=== PATIENT | female | born 1980 | race Caucasian/White ===

== ENCOUNTER 2017-03-27 14:23 | Emergency (ER) | payer BC, SELFPAY ==
[2017-03-27 14:33] VITALS: BP 149/79; PULSE 98; RESP 20; TEMP 36.6; O2SAT 99; BMI 32.8
--- NOTE | 2017-03-27 14:52 | HMH.EDUTC ---
[facility] [place]: Sinusitis Disposition: Home, Self-Care Condition on Discharge: Good Instructions: Sinusitis, DI for Sinusitis Additional Instructions: Start antibiotic. Sinus infections may take 2-3 days to notice much improvement so be sure to use conservative measures as discussed for symptoms Ok to continue Sudafed Flonase 2 spray in each nostril daily to help with nasal congestion, sinus an ear pressure/inflammation Lots of Fluids Sleep elevated Humidifer/vaporizer Augmentin can cause GI effects. Probiotics may help to prevent these symptoms Prescriptions: Amoxicillin/Potassium Clav [Augmentin 875-125 Tablet] 1 tab PO Q12H #14 tab Fluticasone Propionate [Flonase 50mcg nasal spray 16gm] 2 spr NS DAILY #1 bottle predniSONE [Prednisone 20mg Tab] 20 mg PO BID #10 tab Forms: Work/School Release Time of Disposition: 15:08 Medical Decision Making - Medical Records Medical records reviewed: Yes: I reviewed the patient's medical records. Vital Signs: 03/27/17 14:33 Temperature 97.8 F Temperature Source Temporal Artery Scan Pulse Rate [Right] 98 H Respiratory Rate 20 Blood Pressure [Right Arm] 149/79 Blood Pressure Mean [Right Arm] 102 Blood Pressure Source [Right Arm] Automatic Cuff Blood Pressure Position [Right Arm] Sitting 02 Sat by Pulse Oximetry 99 Oxygen Delivery Method Room Air - Hans Inquiry Pt receiving controlled substance: No Hans was queried for this patient: No [facility] [place] - General Stated complaint: head cold or sinus infection ears Mode of Arrival: Ambulatory Source of Information: Patient Limitations: No Limitations Description of Symptoms (Recalled from Triage Doc. by RN): SINUS PRESSURE EAR PAIN HEENT Symptoms (Recalled from RN notes): Yes Resp Symptoms (Recalled from RN notes): No Skin Symptoms (Recalled from RN notes): No MS Symptoms (Recalled from RN notes): No Functional Status (Recalled from RN notes): N - History of Present Illness Provider Complaint: Patient state that she feels like she may have a sinus infection State that she has been having pain and pressure behind her eyes and pressure feeling in her upper teeth for over a week that has continued to get worse State that she has taken sudafed but it has not helped with pain and pressure feeling - Related Data Previous Rx's Medication Instructions Recorded Amoxicillin/Potassium Clav 1 tab PO Q12H #14 tab 03/27/17 [Augmentin 875-125 Tablet] Fluticasone Propionate [Flonase 2 spr NS DAILY #1 bottle 03/27/17 50mcg nasal spray 16gm] predniSONE [Prednisone 20mg 20 mg PO BID #10 tab 03/27/17 Tab] Allergies Allergy/AdvReac Type Severity Reaction Status Date / Time No Known Allergies Allergy Verified 03/27/17 14:40 - Worker's Comp Is this a Worker's Comp case?: No [facility] History I have reviewed the patient's past medical history: Yes - *Social History Smoking Status: Current every day smoker Tobacco Type: cigarettes Alcohol Intake: never - Psychiatric History Expresses thoughts of harming self/others: None Suicide Plan Description: No Plan ROS Obtained: Yes All systems reviewed & no additional complaints - Constitutional Constitutional: Reports fever(s) - ENT Ears, Nose, Mouth, and Throat: Reports sinus pain, Reports sinus pressure, Reports sore throat Physical Exam - General General appearance: alert, in no apparent distress - Expanded ENT Exam Nose exam: Present: sinus tenderness, other (Pain and tenderness noted Maxillary sinuses, reports thick yellow discharge) Nasal speculum exam: Bilateral: purulent discharge - Respiratory Respiratory exam: Present: normal lung sounds bilaterally. Absent: respiratory distress - Cardiovascular Cardiovascular exam: Present: regular rate, normal rhythm. Absent: JVD - Neurological Exam Neurological exam: Present: alert, oriented X3
--- NOTE | 2017-03-27 14:56 | ED_ITS ---
[facility] [place] Clinical Impression: Sinusitis Disposition: Home, Self-Care Condition on Discharge: Good Instructions: Sinusitis, DI for Sinusitis Additional Instructions: Start antibiotic. Sinus infections may take 2-3 days to notice much improvement so be sure to use conservative measures as discussed for symptoms Ok to continue Sudafed Flonase 2 spray in each nostril daily to help with nasal congestion, sinus an ear pressure/inflammation Lots of Fluids Sleep elevated Humidifer/vaporizer Augmentin can cause GI effects. Probiotics may help to prevent these symptoms Prescriptions: Amoxicillin/Potassium Clav [Augmentin 875-125 Tablet] 1 tab PO Q12H #14 tab Fluticasone Propionate [Flonase 50mcg nasal spray 16gm] 2 spr NS DAILY #1 bottle predniSONE [Prednisone 20mg Tab] 20 mg PO BID #10 tab Forms: Work/School Release Time of Disposition: 15:08 Medical Decision Making - Medical Records Medical records reviewed: Yes: I reviewed the patient's medical records. Vital Signs: 03/27/17 14:33 Temperature 97.8 F Temperature Source Temporal Artery Scan Pulse Rate [Right] 98 H Respiratory Rate 20 Blood Pressure [Right Arm] 149/79 Blood Pressure Mean [Right Arm] 102 Blood Pressure Source [Right Arm] Automatic Cuff Blood Pressure Position [Right Arm] Sitting 02 Sat by Pulse Oximetry 99 Oxygen Delivery Method Room Air - Hans Inquiry Pt receiving controlled substance: No Hans was queried for this patient: No [facility] [place] HPI - General Stated complaint: head cold or sinus infection ears Mode of Arrival: Ambulatory Source of Information: Patient Limitations: No Limitations Description of Symptoms (Recalled from Triage Doc. by RN): SINUS PRESSURE EAR PAIN HEENT Symptoms (Recalled from RN notes): Yes Resp Symptoms (Recalled from RN notes): No Skin Symptoms (Recalled from RN notes): No MS Symptoms (Recalled from RN notes): No Functional Status (Recalled from RN notes): N - History of Present Illness Provider Complaint: Patient state that she feels like she may have a sinus infection State that she has been having pain and pressure behind her eyes and pressure feeling in her upper teeth for over a week that has continued to get worse State that she has taken sudafed but it has not helped with pain and pressure feeling - Related Data Previous Rx's Medication Instructions Recorded Amoxicillin/Potassium Clav 1 tab PO Q12H #14 tab 03/27/17 [Augmentin 875-125 Tablet] Fluticasone Propionate [Flonase 2 spr NS DAILY #1 bottle 03/27/17 50mcg nasal spray 16gm] predniSONE [Prednisone 20mg 20 mg PO BID #10 tab 03/27/17 Tab] Allergies Allergy/AdvReac Type Severity Reaction Status Date / Time No Known Allergies Allergy Verified 03/27/17 14:40 - Worker's Comp Is this a Worker's Comp case?: No [facility] History I have reviewed the patient's past medical history: Yes - *Social History Smoking Status: Current every day smoker Tobacco Type: cigarettes Alcohol Intake: never - Psychiatric History Expresses thoughts of harming self/others: None Suicide Plan Description: No Plan ROS Obtained: Yes All systems reviewed & no additional complaints - Constitutional Constitutional: Reports fever(s) - ENT Ears, Nose, Mouth, and Throat: Reports sinus pain, Reports sinus pressure, Reports sore
[2017-03-27 15:28] LABS: UTC Strep Screen (Rapid) Negative (Negative)
== END 2017-03-27 15:29 | disposition home or self-care (01) ==
PROVIDERS: Emergency Provider Nurse Practitioner; Family Provider Family Medicine
DX: J32.9 Chronic sinusitis, unspecified (principal); F17.210 Nicotine dependence, cigarettes, uncomplicated
CPT/HCPCS: 87880; 99201

== ENCOUNTER → 2018-03-26 07:26 | Outpatient (CLI) | payer BC, SELFPAY ==
[2018-03-26 07:58] LABS: Basophils # 0.1 K/mm3 (0-0.2); Basophils % 0.5 % (0.1-2.0); Eosinophils # 0.3 K/mm3 (0.0-0.4); Eosinophils % 2.7 % (0.1-12.0); Hematocrit 44.3 % (37.0-47.0); Hemoglobin 14.6 g/dL (12.2-16.2); Lymphocytes # 3.1 K/mm3 (0.7-4.5); Lymphocytes % 27.5 % (10-50); Mean Corpuscular HGB Conc 32.9 g/dL (31.8-35.4); Mean Corpuscular Hemoglobin 30.8 pg (27.0-31.2); Mean Corpuscular Volume 93.5 fl (81-99); Mean Platelet Volume 7.8 fl (7.4-10.4); Monocytes # 0.6 K/mm3 (0.1-1.0); Monocytes % 5.8 % (1.7-9.3); Neutrophils # 7.1 K/mm3 (1.8-7.8); Neutrophils % 63.5 % (37.0-80.0); Platelet Count 347 K/mm3 (142-424); Red Blood Count 4.74 M/mm3 (4.20-5.40); White Blood Count 11.2 K/mm3 (4.8-10.8)
[2018-03-26 10:15] LABS: Alanine Aminotransferase 46 U/L (12-78); Albumin Level 3.7 gm/dL (3.4-5.0); Alkaline Phosphatase 81 U/L (46-116); Anion Gap 15.5 mEq/L (5-15); Aspartate Amino Transferase 16 U/L (15-37); Bilirubin,Total 0.8 mg/dL (0.2-1.0); Blood Urea Nitrogen 10 mg/dL (7-18); Calcium 9.9 mg/dL (8.5-10.1); Carbon Dioxide 24 mmol/L (21.0-32.0); Chloride 104 mmol/L (98-107); Chol/HDL Ratio 5.8 (1-3.5); Cholesterol 198 mg/dL (140-200); Creatinine,Serum 0.71 mg/dL (0.55-1.02); Estimated Glomerular Filt Rate 92 ml/min (>60); Free Thyroxine Index 3.3 ug/dL (5.93-13.13); GFR (African American) 111 ML/MIN (>60); Globulin 3.6 gm/dl (1.3-3.2); Glucose 100 mg/dL (74-106); HDL Cholesterol 34 mg/dL (29-89); LDL Cholesterol 132 mg/dL (0-130); Potassium 4.5 mmoL/L (3.5-5.1); Sodium 139 mmol/L (136-145); Total Protein,Serum 7.3 gm/dL (6.4-8.2); Triglycerides 159 mg/dL (30-200); Triiodothryronine (T3) Uptake 33 % (31-39); VLDL Cholesterol 32 mg/dL (0-40)
[2018-03-27 08:14] LABS: Triiodothyronine (T3) Free 3.4 pg/mL (2.0-4.4)
[2018-03-27 13:41] LABS: Estradiol 154.3 pg/mL (.); FSH 1.6 mIU/mL (.); LH 2.8 mIU/mL (.)
== END ==
PROVIDERS: Visit Provider Nurse Practitioner Obstetrics & Gynecology
DX: F41.9 Anxiety disorder, unspecified (principal); R23.2 Flushing; R45.86 Emotional lability
CPT/HCPCS: 36415; 80053; 80061; 82670; 83001; 83002; 84436; 84443; 84479; 84481; 85025

== ENCOUNTER → 2018-06-17 13:30 | Outpatient (POV) | payer BC, SELFPAY | PROVIDERS: Visit Provider Dermatology | DX: Z00.00 Encounter for general adult medical examination without abnormal findings (principal) ==

== ENCOUNTER → 2019-01-21 13:30 | Outpatient (CLI) | payer BC, SELFPAY ==
--- NOTE | 2019-01-21 13:31 | US_ITS ---
PROCEDURE: US TRANSVAGINAL CLINICAL INDICATION: US T/V- Abnormal bleeding Heavy cycles, heavy bleeding COMPARISON: No exams were available for comparison FINDINGS: The uterus is 7.4 x 4 x 5.6 cm. The endometrium is thickened at 13 mm. No obvious uterine mass. The uterus is retroverted The left ovary is 3.7 x 2.3 cm and contains multiple small follicles. The right ovary is 4 x 2.4 cm and contains a 1.8 cm cyst No cul-de-sac fluid there is bilateral ovarian blood flow IMPRESSION: Retroverted uterus with thickened endometrium and small bilateral ovarian cysts Dictated by: Yordan Eli MD 01/21/2019 19:35 Electronically signed by Yordan Eli MD in [place] 01/21/2019 19:35
== END ==
PROVIDERS: PCP Family Medicine; Visit Provider Nurse Practitioner Obstetrics & Gynecology
DX: N93.9 Abnormal uterine and vaginal bleeding, unspecified (principal)
CPT/HCPCS: 76830

== ENCOUNTER 2020-01-23 14:18 | Emergency (ER) | payer BC, SELFPAY ==
[2020-01-23 14:25] VITALS: BP 148/94; PULSE 104; RESP 18; TEMP 36.9; O2SAT 98; BMI 31.3
--- NOTE | 2020-01-23 14:41 | HMH.EDUTC ---
[facility] [place] Clinical Impression: Impacted cerumen of both ears, COVID-19 virus test result unknown Disposition: Home, Self-Care Condition on Discharge: Good Instructions: Preventing the Spread of Coronavirus Discharge Instructions, Cerumen Impaction Additional Instructions: self isolate until test results are known to be neg follow up with pcp if symptoms worsen or do not improve increase fluids tylenol or motrin as needed Referrals: Ab Negron MD [Primary Care Provider] - Time of Disposition: 14:46 Medical Decision Making - Hans Inquiry Pt receiving controlled substance: No Vital Signs: 01/23/20 14:25 Temperature 98.4 F Temperature Source Oral Pulse Rate [Right Brachial] 104 H Respiratory Rate 18 Blood Pressure [Right Arm] 148/94 H Blood Pressure Mean [Right Arm] 112 Blood Pressure Source [Right Arm] Automatic Cuff Blood Pressure Position [Right Arm] Sitting 02 Sat by Pulse Oximetry 98 Oxygen Delivery Method Room Air Orders (Tests/Meds): ORDERS Category Date Time Status Covid-19 Nasal PCR Sendout [facility] 01/23/20 14:29 Ordered [facility] [place] - General Chief complaint: Urgent [facility] Stated complaint: ear pain Time Seen by Provider: 01/23/20 14:42 Mode of Arrival: Ambulatory Source of Information: Patient Limitations: No Limitations Description of Symptoms (Recalled from Triage Doc. by RN): PATIENT C/O LEFT EAR PAIN AND SINUS DRAINAGE X 2 MONTHS. REQUESTING COVID TEST HEENT Symptoms (Recalled from RN notes): No Resp Symptoms (Recalled from RN notes): No Skin Symptoms (Recalled from RN notes): No MS Symptoms (Recalled from RN notes): No Functional Status (Recalled from RN notes): WNL - History of Present Illness Provider Complaint: 39 yr old female presents for steven ear pain with pressure and sinus congestion for 2 months. pt states she is day 11 of her quaritine and wants to make sure. - Related Data Home Medications Medication Instructions Recorded Confirmed Cetirizine HCl [Zyrtec] 10 mg PO DAILY 10/14/18 01/23/20 Sertraline HCl [Zoloft] 50 mg PO DAILY 01/23/20 01/23/20 Allergies Allergy/AdvReac Type Severity Reaction Status Date / Time No Known Allergies Allergy Verified 01/15/19 09:49 - Worker's Comp Is this a Worker's Comp case?: No [facility] History - Hepatitis A Screen Drug use history?: No High risk sexual behaviors?: No History of sexually transmitted infection?: No Currently employed?: No Childcare worker?: No Do you have indoor plumbing?: Yes Do you have electricity?: Yes Attestation statement:: This patient has been screened for Hepatitis A risk factors. I have reviewed the patient's past medical history: Yes Medical History: Reports:: Anxiety, Depression Denies:: Cancer, Diabetes Mellitus Type 1, Diabetes Mellitus Type 2, Hypertension, MRSA Other Surgeries: Yes: No Previous Surgery, Cholecystectomy Amputation: No Fractures: No - Social History Smoking Status: Current every day smoker Tobacco Type: cigarettes # Packs/Day (cigarettes): 1 Alcohol Intake: never Substance Use Type: denies use Occupational Status: other Housing: house - Psychiatric History Pschychiatric History:: Reports:: Anxiety, Depression Family Hx:: No significant family history [employer] history: Spontaneous ROS Obtained: Yes Systems reviewed as appropriate & no additional complaints - Constitutional Constitutional: Reports system reviewed and no additional complaints, except as docu, Denies chills, Denies fever(s) - Eyes Eyes: Reports system reviewed and no additional complaints, except as docu - ENT Ears, Nose, Mouth, and Throat: Reports system reviewed and no additional complaints, except as docu, Reports otalgia, Reports hearing loss, Reports nasal congestion, Reports post nasal drip, Reports sinus pressure - Cardiovascular Cardiovascular: Reports system reviewed and no additional complaints, except as docu, Denies chest pain - Respi
[2020-01-23 15:03] VITALS: BP 148/94; PULSE 104; RESP 18; TEMP 36.9; O2SAT 98
[2020-01-25 09:54] LABS: Covid-19 Nasal PCR Sendout UK Detected
--- NOTE | 2020-01-25 11:42 | PC.NURSE ---
PATIENT NOTIFIED OF POSITIVE COVID RESULTS
== END 2020-01-23 15:05 | disposition home or self-care (01) ==
PROVIDERS: Emergency Provider Nurse Practitioner Family; PCP Family Medicine
DX: U07.1 COVID-19 (principal); F41.8 Other specified anxiety disorders; H61.23 Impacted cerumen, bilateral; F17.210 Nicotine dependence, cigarettes, uncomplicated; Z90.49 Acquired absence of other specified parts of digestive tract; Z79.899 Other long term (current) drug therapy
CPT/HCPCS: 99201; U0003

== ENCOUNTER → 2020-02-16 10:18 | Outpatient (CLI) | payer BC, SELFPAY ==
[2020-02-16 10:21] LABS: Microscopic, Urine URINE MICROSCOPIC (MICROSCOPIC)
[2020-02-16 11:02] LABS: Basophils # 0.1 K/mm3 (0-0.2); Basophils % 0.5 % (0.1-2.0); Eosinophils # 0.3 K/mm3 (0.0-0.4); Eosinophils % 2.6 % (0.1-12.0); Hematocrit 44.7 % (37.0-47.0); Hemoglobin 15.3 g/dL (12.2-16.2); Lymphocytes # 2.9 K/mm3 (0.7-4.5); Lymphocytes % 27.2 % (10-50); Mean Corpuscular HGB Conc 34.3 g/dL (31.8-35.4); Mean Corpuscular Hemoglobin 32.3 pg (27.0-31.2); Mean Corpuscular Volume 94.1 fl (81-99); Mean Platelet Volume 8.3 fl (7.4-10.4); Monocytes # 0.6 K/mm3 (0.1-1.0); Monocytes % 5.3 % (1.7-9.3); Neutrophils # 6.7 K/mm3 (1.8-7.8); Neutrophils % 64.3 % (37.0-80.0); Platelet Count 363 K/mm3 (142-424); Red Blood Count 4.75 M/mm3 (4.20-5.40); Red Cell Distribution Width 13.5 % (11.5-17.5); White Blood Count 10.5 K/mm3 (4.8-10.8)
[2020-02-16 11:26] LABS: Chloride 103 mmol/L (98-107); Sodium 139 mmol/L (136-145)
[2020-02-16 11:27] LABS: Potassium 4.8 mmoL/L (3.5-5.1)
[2020-02-16 11:29] LABS: Alanine Aminotransferase 39 U/L (12-78); Alkaline Phosphatase 88 U/L (38-126); Aspartate Amino Transferase 32 U/L (14-36); Bilirubin,Total 0.6 mg/dl (0.2-1.3); Blood Urea Nitrogen 11 mg/dl (7-17); Estimated Glomerular Filt Rate 93 ml/min (>60); GFR (African American) 112 ML/MIN (>60)
[2020-02-16 11:30] LABS: Albumin Level 4.7 g/dl (3.5-5.0); Albumin/Globulin Ratio 1.5 (1.1-1.8); Anion Gap 14.8 mEq/L (5-15); Calcium 10.5 mg/dl (8.4-10.2); Carbon Dioxide 26 mmol/L (22.0-30.0); Globulin 3.1 g/dL (1.3-3.2); Glucose 128 mg/dl (74-100); Total Protein,Serum 7.8 g/dl (6.3-8.2)
[2020-02-16 11:53] LABS: Free Thyroxine Index 3.5 ug/dL (5.93-13.13); T4 (Thyroxine) 11.9 ug/dl (5.53-11.0); Triiodothryronine (T3) Uptake 29 % (23.5-40.5)
[2020-02-16 12:09] LABS: Thyroid Stimulating Hormone 2.28 uIU/mL (0.465-4.68)
[2020-02-16 19:02] LABS: Appearance,Urine CLEAR (Clear); Bilirubin,Urine Negative (Negative); Blood, Urine 3+ (Negative); Color,Urine YELLOW (Yellow); Glucose,Urine (UA) Negative (Negative); Ketones,Urine Negative (Negative); Leukocyte Esterase,Urine Negative (Negative); Nitrate,Urine Negative (Negative); Protein,Urine Negative (Negative); Urobilinogen,Urine 0.2 EU/dl (0.2)
[2020-02-17 10:27] LABS: FSH 6.7 mIU/mL (.); LH 8.6 mIU/mL (.)
== END ==
PROVIDERS: Visit Provider Nurse Practitioner Obstetrics & Gynecology
DX: N92.6 Irregular menstruation, unspecified (principal); N39.0 Urinary tract infection, site not specified
CPT/HCPCS: 36415; 80053; 81001; 83001; 83002; 84436; 84443; 84479; 85025

== ENCOUNTER → 2020-02-18 14:28 | Outpatient (CLI) | payer BC, SELFPAY ==
--- NOTE | 2020-02-18 14:29 | US_ITS ---
PROCEDURE: US TRANSVAGINAL CLINICAL INDICATION: Menorrhagia Heavy cycles and pelvic pain COMPARISON: US US TRANSVAGINAL from 01/21/2019 FINDINGS: UTERUS: 7cm x 5cmx 4cm with a combined endometrial thickness of 7.3mm LEFT OVARY: [id number] with a volume of 7ml. RIGHT OVARY: [id number] with a volume of 7.4ml. There are simple bilateral ovarian cyst. There is also a complex right ovarian cyst measuring 2 cm with some nodularity of the wall an underlying septa. The uterus is retroverted IMPRESSION: Retroverted uterus with complex right ovarian cyst. Suggest 3 to six-month follow-up to confirm stability. Dictated by: Yordan Eli MD 02/18/2020 17:13 Yordan Eli MD in [place] 02/18/2020 17:13
== END ==
LOC: RAD 14:29
PROVIDERS: PCP Family Medicine; Visit Provider Nurse Practitioner Obstetrics & Gynecology
DX: N92.0 Excessive and frequent menstruation with regular cycle (principal)
CPT/HCPCS: 76830

== ENCOUNTER 2021-05-21 14:17 | Emergency (ER) | payer BC, SELFPAY ==
[2021-05-21 16:15] VITALS: BP 145/91; PULSE 84; RESP 19; TEMP 37.2; O2SAT 98; BMI 30.4
--- NOTE | 2021-05-21 16:31 | HMH.EDUTC ---
[facility] [place] Clinical Impression: Otitis media Qualifiers: Otitis media type: suppurative Chronicity: acute Laterality: bilateral Recurrence: non-recurrent Spontaneous tympanic membrane rupture: without spontaneous rupture Qualified Code(s): H66.003 - Acute suppurative otitis media without spontaneous rupture of ear drum, bilateral Disposition: Home, Self-Care Condition on Discharge: Good Instructions: DI for Otitis Media (Middle Ear Infection)-Child Additional Instructions: Start antibiotic as soon as possible and be sure to take as ordered for full length of time even though he should start feeling better in 24-48 hours. Tylenol or Motrin as needed for pain or fever Encourage fluids, water, Gatorade, Powerade, Pedialyte if /toddler/child Warm compresses often helps when placed over ear Return immediately for new or worsening symptoms no noticeable improvement in 48-72 hours and in 10-14 days to ensure the ears are return to baseline. Follow-up with primary care Prescriptions: Amoxicillin [Amoxicillin 500mg Tab] 500 mg PO BID 10 Days #20 tab Prescription Printed Referrals: Provider,Referral, [Primary Care Provider] - Time of Disposition: 16:41 Medical Decision Making - Hans Inquiry Pt receiving controlled substance: No Vital Signs: 05/21/21 16:15 Temperature 98.9 F Temperature Source Oral Pulse Rate [Right Brachial] 84 Respiratory Rate 19 Blood Pressure [Right Arm] 145/91 H Blood Pressure Mean [Right Arm] 109 Blood Pressure Source [Right Arm] Automatic Cuff Blood Pressure Position [Right Arm] Sitting 02 Sat by Pulse Oximetry 98 Oxygen Delivery Method Room Air [facility] [place] HPI - General Chief complaint: Urgent Treatment Center Stated complaint: left ear ache Time Seen by Provider: 05/21/21 16:32 Mode of Arrival: Ambulatory Source of Information: Patient Limitations: No Limitations Description of Symptoms (Recalled from Triage Doc. by RN): PATIENT C/O BILATERAL EAR PAIN X 2 WEEKS HEENT Symptoms (Recalled from RN notes): Yes Resp Symptoms (Recalled from RN notes): No Skin Symptoms (Recalled from RN notes): No MS Symptoms (Recalled from RN notes): No Functional Status (Recalled from RN notes): WNL - History of Present Illness Provider Complaint: 40 yr old female presnets for steven ear pain. - Related Data Home Medications Medication Instructions Recorded Confirmed Cetirizine HCl [Zyrtec] 10 mg PO DAILY 10/14/18 12/20/20 Sertraline HCl [Zoloft] 25 mg PO DAILY 05/21/21 05/21/21 Previous Rx's Medication Instructions Recorded sumatriptan succinate 100 mg tablet 100 mg PO .COMPLEX #30 tab 09/02/20 amoxicillin 500 mg capsule 500 mg PO Q12H 10 Days #20 cap 12/20/20 Amoxicillin [Amoxicillin 500mg Tab] 500 mg PO BID 10 Days #20 tab 05/21/21 Allergies Allergy/AdvReac Type Severity Reaction Status Date / Time No Known Allergies Allergy Verified 12/20/20 12:14 - Worker's Comp Is this a Worker's Comp case?: No [facility] History - Hepatitis A Screen Drug use history?: No High risk sexual behaviors?: No History of sexually transmitted infection?: No Currently employed?: No Childcare worker?: No Do you have indoor plumbing?: Yes Do you have electricity?: Yes Attestation statement:: This patient has been screened for Hepatitis A risk factors. I have reviewed the patient's past medical history: Yes Medical History: Reports:: Anxiety, Depression, Migraine Denies:: Cancer, Diabetes Mellitus Type 1, Diabetes Mellitus Type 2, Hypertension, MRSA Other Surgeries: Yes: No Previous Surgery, Cholecystectomy Amputation: No Fractures: No - Social History Smoking Status: Current every day smoker Tobacco Type: cigarettes # Packs/Day (cigarettes): 1 Alcohol Intake: never Alcohol Intake Frequency:: other Substance Use Type: denies use Occupational Status: other Housing: house - Psychiatric History Pschychiatric History:: Reports:: Anxiety, Depression Family Hx:: No significant famil
[2021-05-21 16:36] VITALS: BP 145/91; PULSE 84; RESP 19; TEMP 37.2; O2SAT 98
== END 2021-05-21 16:45 | disposition home or self-care (01) ==
PROVIDERS: Emergency Provider Nurse Practitioner Family
DX: H66.003 Acute suppurative otitis media without spontaneous rupture of ear drum, bilateral (principal); F41.8 Other specified anxiety disorders; F17.210 Nicotine dependence, cigarettes, uncomplicated

== ENCOUNTER 2021-05-26 13:51 | Emergency (ER) | payer BC, SELFPAY ==
[2021-05-26 13:55] VITALS: BP 150/92; PULSE 89; RESP 18; TEMP 36.9; O2SAT 95; BMI 34.4
[2021-05-26 14:08] VITALS: BP 150/92; PULSE 89; RESP 18; TEMP 36.9; O2SAT 95
--- NOTE | 2021-05-26 14:30 | HMH.EDUTC ---
[facility] [place]: Otitis media Qualifiers: Otitis media type: suppurative Chronicity: acute Laterality: bilateral Recurrence: non-recurrent Spontaneous tympanic membrane rupture: without spontaneous rupture Qualified Code(s): H66.003 - Acute suppurative otitis media without spontaneous rupture of ear drum, bilateral Disposition: Home, Self-Care Condition on Discharge: Good Instructions: Middle Ear Infection Additional Instructions: Drink plenty of fluids. Take tylenol or ibuprofen for pain or fever. Take the medications as directed. Follow up with your regular doctor. GO TO THE ER FOR ANY WORSENING SYMPTOMS Stop the antibiotics that you are on and start the new ones. Prescriptions: methylPREDNISolone [Medrol] 4 mg PO DIRECTED 6 Days #21 packet Transmission Status: Received by [facility] Cefdinir [Omnicef 300mg Capsule] 300 mg PO BID #20 cap Transmission Status: Received by [facility] Referrals: Provider,Referral, [Primary Care Provider] - Time of Disposition: 15:15 Medical Decision Making - Medical Records Medical records reviewed: No: I reviewed the patient's medical records. - Hans Inquiry Pt receiving controlled substance: No Vital Signs: 05/26/21 13:55 05/26/21 14:08 Temperature 98.4 F 98.4 F Temperature Source Oral Pulse Rate 89 Pulse Rate [Right Brachial] 89 Respiratory Rate 18 18 Blood Pressure 150/92 H Blood Pressure [Right Arm] 150/92 H Blood Pressure Mean [Right Arm] 111 Blood Pressure Source [Right Arm] Automatic Cuff Blood Pressure Position [Right Arm] Sitting 02 Sat by Pulse Oximetry 95 Oxygen Delivery Method Room Air - Lab Data Lab results reviewed: Yes: I reviewed the patient's lab results. [facility] [place] - General Stated complaint: ear pain Time Seen by Provider: 05/26/21 14:30 Mode of Arrival: Ambulatory Source of Information: Patient Limitations: No Limitations Description of Symptoms (Recalled from Triage Doc. by RN): PATIENT C/O LEFT EAR PAIN AND FEELS LIKE THERE IS FLUID IN HER RIGHT EAR. SHE WAS SEEN SATURDAY AND GIVEN AMOXICILLIN FOR AN EAR INFECTION AND STATES IT IS NOT BETTER HEENT Symptoms (Recalled from RN notes): Yes Resp Symptoms (Recalled from RN notes): No Skin Symptoms (Recalled from RN notes): No MS Symptoms (Recalled from RN notes): No Functional Status (Recalled from RN notes): WNL - History of Present Illness Provider Complaint: She has been having bilateral ear pain for the past 7 days. She was seen here on 3 days ago and diagnosed with an ear infection and started on amoxicillin. She states that since then she has continued to have bilateral ear pain that has got worse instead of better. She denies other symptoms. - Related Data Home Medications Medication Instructions Recorded Confirmed Cetirizine HCl [Zyrtec] 10 mg PO DAILY 10/14/18 05/26/21 Amoxicillin [Amoxicillin 500mg Tab] 500 mg PO BID 05/26/21 05/26/21 Previous Rx's Medication Instructions Recorded Cefdinir [Omnicef 300mg Capsule] 300 mg PO BID #20 cap 05/26/21 methylPREDNISolone [Medrol] 4 mg PO DIRECTED 6 Days #21 05/26/21 packet Allergies Allergy/AdvReac Type Severity Reaction Status Date / Time No Known Allergies Allergy Verified 12/20/20 12:14 - Worker's Comp Is this a Worker's Comp case?: No [facility] History - Hepatitis A Screen Drug use history?: No High risk sexual behaviors?: No History of sexually transmitted infection?: No Currently employed?: No Childcare worker?: No Do you have indoor plumbing?: Yes Do you have electricity?: Yes Attestation statement:: This patient has been screened for Hepatitis A risk factors. I have reviewed the patient's past medical history: Yes Medical History: Reports:: Anxiety, Depression, Migraine Denies:: Cancer, Diabetes Mellitus Type 1, Diabetes Mellitus Type 2, Hypertension, MRSA Other Surgeries: Yes: No Previous Surgery, Cholecystectomy
== END 2021-05-26 15:19 | disposition home or self-care (01) ==
PROVIDERS: Emergency Provider Nurse Practitioner Family
DX: H66.003 Acute suppurative otitis media without spontaneous rupture of ear drum, bilateral (principal); F41.8 Other specified anxiety disorders; F17.210 Nicotine dependence, cigarettes, uncomplicated
CPT/HCPCS: 99212; G0463

== ENCOUNTER 2021-05-29 09:48 | Emergency (ER) | payer BC, SELFPAY ==
[2021-05-29 11:05] VITALS: BP 131/88; PULSE 101; RESP 19; TEMP 37; O2SAT 98; BMI 29.2
--- NOTE | 2021-05-29 11:24 | HMH.EDUTC ---
[facility] [place] Disposition Clinical Impression: Vertigo Disposition: Home, Self-Care Condition on Discharge: Good Instructions: Vertigo, DI for Ear Pain-Adult Additional Instructions: Start the Cefdinir and stop taking the amoxicillin COntinue taking the Medrol dose pack Start the Meclizine may take every 8 hours for dizziness Return if needed Straight to ER if any life threatening symptoms Prescriptions: Meclizine HCl [Meclizine 25mg Tab] 25 mg PO Q8HP PRN #15 tab PRN Reason: Dizziness Transmission Status: Pending to [facility] Referrals: Ab Negron MD [Primary Care Provider] - As needed Time of Disposition: 11:38 Medical Decision Making - Hans Inquiry Pt receiving controlled substance: No Hans was queried for this patient: No Vital Signs: 05/29/21 11:05 Temperature 98.6 F Temperature Source Oral Pulse Rate [Right Brachial] 101 H Respiratory Rate 19 Blood Pressure [Right Arm] 131/88 Blood Pressure Mean [Right Arm] 102 Blood Pressure Source [Right Arm] Automatic Cuff Blood Pressure Position [Right Arm] Sitting 02 Sat by Pulse Oximetry 98 Oxygen Delivery Method Room Air [facility] [place] HPI - General Stated complaint: lt ear pain/fluid Time Seen by Provider: 05/29/21 11:28 Mode of Arrival: Ambulatory Source of Information: Patient Limitations: No Limitations Description of Symptoms (Recalled from Triage Doc. by RN): PATIENT C/O LEFT EAR PAIN HEENT Symptoms (Recalled from RN notes): Yes Resp Symptoms (Recalled from RN notes): No Skin Symptoms (Recalled from RN notes): No MS Symptoms (Recalled from RN notes): No Functional Status (Recalled from RN notes): WNL - History of Present Illness Provider Complaint: Patient states that she has been having pain in her left ear and feeling of fullness and dizziness at times States that she has been taking amoxicillin and recently they changed her antibiotic to Cefdinir but she hasnt picked it up yet State that today she is still having the feeling of fulless and pressure and wanted to see if there is something else she can take or get - Related Data Home Medications Medication Instructions Recorded Confirmed Cetirizine HCl [Zyrtec] 10 mg PO DAILY 10/14/18 05/26/21 Amoxicillin [Amoxicillin 500mg Tab] 500 mg PO BID 05/26/21 05/26/21 Previous Rx's Medication Instructions Recorded Cefdinir [Omnicef 300mg Capsule] 300 mg PO BID #20 cap 05/26/21 methylPREDNISolone [Medrol] 4 mg PO DIRECTED 6 Days #21 05/26/21 packet Meclizine HCl [Meclizine 25mg Tab] 25 mg PO Q8HP PRN #15 tab 05/29/21 Allergies Allergy/AdvReac Type Severity Reaction Status Date / Time No Known Allergies Allergy Verified 12/20/20 12:14 - Worker's Comp Is this a Worker's Comp case?: No [facility] History - Hepatitis A Screen Drug use history?: No High risk sexual behaviors?: No History of sexually transmitted infection?: No Currently employed?: No Childcare worker?: No Do you have indoor plumbing?: Yes Do you have electricity?: Yes Attestation statement:: This patient has been screened for Hepatitis A risk factors. I have reviewed the patient's past medical history: Yes Medical History: Reports:: Anxiety, Depression, Migraine Denies:: Cancer, Diabetes Mellitus Type 1, Diabetes Mellitus Type 2, Hypertension, MRSA Other Surgeries: Yes: No Previous Surgery, Cholecystectomy Amputation: No Fractures: No - Social History Smoking Status: Current every day smoker Tobacco Type: cigarettes # Packs/Day (cigarettes): 1 Alcohol Intake: never Alcohol Intake Frequency:: other Substance Use Type: denies use Occupational Status: other Housing: house - Psychiatric History Pschychiatric History:: Reports:: Anxiety, Depression Family Hx:: No significant family history 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
[2021-05-29 11:42] VITALS: BP 131/88; PULSE 101; RESP 19; TEMP 37; O2SAT 98
== END 2021-05-29 11:45 | disposition home or self-care (01) ==
PROVIDERS: Emergency Provider Nurse Practitioner; PCP Family Medicine
DX: R42 Dizziness and giddiness (principal); H92.02 Otalgia, left ear; G43.909 Migraine, unspecified, not intractable, without status migrainosus; F32.A Depression, unspecified; F41.9 Anxiety disorder, unspecified; F17.210 Nicotine dependence, cigarettes, uncomplicated; Z79.52 Long term (current) use of systemic steroids; Z79.899 Other long term (current) drug therapy
CPT/HCPCS: 99213; G0463

== ENCOUNTER → 2021-07-04 13:21 | Outpatient (CLI) | payer BC, SELFPAY ==
[2021-07-06 09:18] LABS: Estradiol 63.2 pg/mL (.); FSH 8.7 mIU/mL (.); LH 15.6 mIU/mL (.)
== END ==
LOC: LAB 13:22
PROVIDERS: Visit Provider Nurse Practitioner Obstetrics & Gynecology
DX: N93.9 Abnormal uterine and vaginal bleeding, unspecified (principal)
CPT/HCPCS: 36415; 82626; 82670; 83001; 83002

== ENCOUNTER → 2021-07-06 10:52 | Outpatient (CLI) | payer BC, SELFPAY ==
--- NOTE | 2021-07-06 10:52 | US_ITS ---
FINAL REPORT CLINICAL HISTORY: HEAVY PERIODS FINDINGS: US TRANSVAGINAL Transvaginal sonographic images of the pelvis were obtained. The uterus is mildly enlarged measuring 9.4 x 5.0 x 3.8 cm. The endometrium measures 8 mm, which is within normal limits. No uterine mass is identified. The right ovary measures 2.7 cm in length and left ovary measures 3.7 cm in length. Normal blood flow seen to the ovaries. There is a small 1.8 cm left ovarian cyst. There is no evidence of free fluid. IMPRESSION: Left ovarian cyst. Reviewed, Interpreted and Dictated by Jin Aly III, MD Transcribed by Joyce Street Authenticated by Jin Aly III, MD on 07/06/2021 01:46:57 PM [facility]
== END ==
LOC: RAD 10:52
PROVIDERS: PCP Nurse Practitioner Obstetrics & Gynecology; Visit Provider Nurse Practitioner Obstetrics & Gynecology
DX: N92.0 Excessive and frequent menstruation with regular cycle (principal)
CPT/HCPCS: 76830

== ENCOUNTER 2021-07-17 17:16 | Emergency (ER) | payer BC, SELFPAY ==
[2021-07-17 17:38] VITALS: BP 140/93; PULSE 90; RESP 18; TEMP 36.7; O2SAT 96; BMI 31.3
--- NOTE | 2021-07-17 17:41 | HMH.EDUTC ---
[facility] [place] Disposition Clinical Impression: Cervical lymphadenopathy Tick bite of scalp Qualifiers: Encounter type: initial encounter Qualified Code(s): S00.06XA - Insect bite (nonvenomous) of scalp, initial encounter Disposition: Home, Self-Care Condition on Discharge: Good Instructions: DI for Lymphadenopathy Additional Instructions: Apply warm wet compresses to the affected sites three or four times per day for 15 minutes as tolerated. Take the antibiotics as directed. Follow up with your regular doctor. GO TO THE ER FOR ANY WORSENING SYMPTOMS OR CONCERNS Prescriptions: Doxycycline Monohydrate [Doxycycline Clark 100mg Tab] 100 mg PO Q12 10 Days #20 tab Transmission Status: Received by [facility] [place] Referrals: Loan Landaverde APRN [Primary Care Provider] - Time of Disposition: 18:37 Medical Decision Making - Medical Records Medical records reviewed: No: I reviewed the patient's medical records. - Hans Inquiry Pt receiving controlled substance: No Vital Signs: 07/17/21 17:38 07/17/21 18:47 Temperature 98.1 F 98.1 F Temperature Source Oral Pulse Rate 90 Pulse Rate [Left Radial] 90 Respiratory Rate 18 18 Blood Pressure 140/93 H Blood Pressure [Right Arm] 140/93 H Blood Pressure Mean [Right Arm] 108 02 Sat by Pulse Oximetry 96 - Lab Data Lab results reviewed: Yes: I reviewed the patient's lab results. Orders (Tests/Meds): ED MEDICATIONS Discontinued Medications Generic Name Dose Route Start Last Admin Trade Name Yeq PRN Reason Stop Dose Admin Ceftriaxone Sodium 1 gm 07/17/21 18:28 07/17/21 18:43 Ceftriaxone 1gm Vial IM 07/17/21 18:29 1 gm ONCE ONE Administration Lidocaine HCl 0 ml 07/17/21 18:28 07/17/21 18:42 Lidocaine 1% 5ml Pf Vial IM 07/17/21 18:29 2 ml ONCE ONE Administration [facility] [place] HPI - General Stated complaint: poss swollen lymph node Time Seen by Provider: 07/17/21 17:41 - History of Present Illness Provider Complaint: She has a tender knot on the right side of her neck. this has been present for the past 3 to 4 days. It hurts to turn her neck. She denies any fever or chills. She did find a tick embedded in her scalp just above the enlarged lymph node about 1 week ago. - Related Data Home Medications Medication Instructions Recorded Confirmed Cetirizine HCl [Zyrtec] 10 mg PO DAILY 10/14/18 07/05/21 clobetasol 0.05 % topical ointment g TOPICAL 07/03/21 07/05/21 sertraline 50 mg tablet 50 mg PO tab 07/03/21 07/05/21 sumatriptan succinate 100 mg tablet 100 mg PO tab 07/03/21 07/05/21 triamcinolone acetonide 0.1 % 1 applic TOPICAL g 07/03/21 07/05/21 topical ointment Previous Rx's Medication Instructions Recorded Meclizine HCl [Meclizine 25mg Tab] 25 mg PO Q8HP PRN #15 tab 05/29/21 medroxyprogesterone 10 mg tablet 10 mg PO DAILY #10 tab 07/03/21 phenazopyridine 100 mg tablet 100 mg PO TID 3 Days #9 tab 07/05/21 sulfamethoxazole 800 1 tab PO BID 10 Days #20 tab 07/05/21 mg-trimethoprim 160 mg tablet Doxycycline Monohydrate 100 mg PO Q12 10 Days #20 tab 07/17/21 [Doxycycline Clark 100mg Tab] Allergies Allergy/AdvReac Type Severity Reaction Status Date / Time No Known Allergies Allergy Verified 07/17/21 17:49 [facility] History - Hepatitis A Screen Attestation statement:: This patient has been screened for Hepatitis A risk factors. I have reviewed the patient's past medical history: Yes Medical History: Reports:: Anxiety, Depression, Migraine Denies:: Cancer, Diabetes Mellitus Type 1, Diabetes Mellitus Type 2, Hypertension, MRSA Other Surgeries: Yes: No Previous Surgery, Cholecystectomy Amputation: No Fractures: No - Social History Smoking Status: Current every day smoker Tobacco Type: cigarettes # Packs/Day (cigarettes): 1 Alcohol Intake: never Alcohol Intake Frequency:: other Substance Use Type: denies use Occupational Status: other Housing: house - Psychiatric History
[2021-07-17 18:47] VITALS: BP 140/93; PULSE 90; RESP 18; TEMP 36.7
== END 2021-07-17 18:53 | disposition home or self-care (01) ==
PROVIDERS: Emergency Provider Nurse Practitioner Family; PCP Nurse Practitioner Family
DX: S00.06XA Insect bite (nonvenomous) of scalp, initial encounter (principal); M54.2 Cervicalgia; G43.909 Migraine, unspecified, not intractable, without status migrainosus; F32.A Depression, unspecified; F41.9 Anxiety disorder, unspecified; F17.210 Nicotine dependence, cigarettes, uncomplicated; Z79.52 Long term (current) use of systemic steroids; Z79.899 Other long term (current) drug therapy
CPT/HCPCS: 96372; 99213; G0463; J0696

== ENCOUNTER 2021-07-28 10:35 | Emergency (ER) | payer BC, SELFPAY ==
[2021-07-28 10:35] VITALS: BP 133/74; PULSE 102; RESP 22; TEMP 36.7; O2SAT 95; BMI 33.4
--- NOTE | 2021-07-28 11:00 | HMH.EDUTC ---
[facility] Disposition Clinical Impression: Sinusitis Qualifiers: Sinusitis location: unspecified location Chronicity: unspecified Qualified Code(s): J32.9 - Chronic sinusitis, unspecified Disposition: Home, Self-Care Condition on Discharge: Good Instructions: Sinusitis, DI for Sinusitis Additional Instructions: ? Start antibiotic today. Be sure to complete entire prescription even if feeling better ? Monitor temp. Tylenol every 4 hours as needed and / or ibuprofen every 6 hours as needed ( As long as your primary care physician has told you that it ok to take both. For fever/aches/pains ER if no less than 101 despite Tylenol or Motrin ? Humidifier/vaporizer or hot steamy shower ? Inhaler every 4-6 hours as needed like we discussed. If unsure how to use it, ask pharmacist to demonstrate how. Should help open airways and improve cough, wheezing, and shortness of breath *Tessalon Perles will not cause drowsiness but use at bedtime to help stop cough so that you may get some rest. *Start steroid tomorrow. Helps with inflammation therefore, cough and wheezing. Follow directions on the package. Reviewed side effects. Patient reports taking them before. Follow up IMMEDIATELY for new or worsening of symptoms OR no noticeable improvement over the next 48-72 hours. 911 immediately for any life threatening symptoms such as chest pain or difficulty breathing Prescriptions: Albuterol Sulfate [Proventil-HFA 90mcg/puff Inh] 1 - 2 puffs IH Q6HP PRN #1 each PRN Reason: Shortness Of Breath Transmission Status: Received by [facility] Benzonatate [Benzonatate 100mg cap] 100 mg PO Q8HP PRN #30 cap PRN Reason: Cough Transmission Status: Received by [facility] methylPREDNISolone [Medrol 4mg tab] 4 mg PO DIRECTED #21 tab Transmission Status: Received by [facility] Azithromycin [Z-Александр 250mg Tab] 250 mg PO DIRECTED #6 tab Transmission Status: Received by [facility] Referrals: Clara Fournier MD [Primary Care Provider] - As needed Time of Disposition: 11:12 Medical Decision Making - Hans Inquiry Pt receiving controlled substance: No Hans was queried for this patient: No Vital Signs: 07/28/21 10:35 07/28/21 11:03 Temperature 98.0 F 98.0 F Temperature Source Oral Pulse Rate 102 H Pulse Rate [Left Brachial] 102 H Respiratory Rate 22 Blood Pressure 133/74 Blood Pressure [Left Arm] 133/74 Blood Pressure Mean [Left Arm] 93 Blood Pressure Source [Left Arm] Automatic Cuff Blood Pressure Position [Left Arm] Sitting 02 Sat by Pulse Oximetry 95 Oxygen Delivery Method Room Air Orders (Tests/Meds): ED MEDICATIONS Discontinued Medications Generic Name Dose Route Start Last Admin Trade Name Nelsy PRN Reason Stop Dose Admin Ceftriaxone Sodium 1 gm 07/28/21 11:04 07/28/21 11:14 Ceftriaxone 1gm Vial IM 07/28/21 11:05 1 gm ONCE ONE Administration Lidocaine HCl 0 ml 07/28/21 11:04 07/28/21 11:14 Lidocaine 1% 5ml Pf Vial IM 07/28/21 11:05 2 ml ONCE ONE Administration Methylprednisolone Sodium Succinate 125 mg 07/28/21 11:04 07/28/21 11:14 Methylprednisolone Sod Succ 125mg Vial IM 07/28/21 11:05 125 mg ONCE ONE Administration [facility] HPI - General Stated complaint: congestion, bilateral ear pain Time Seen by Provider: 07/28/21 11:01 Mode of Arrival: Ambulatory Source of Information: Patient Limitations: No Limitations Description of Symptoms (Recalled from Triage Doc. by RN): PATIENT C/O SINUS CONGETION AND CHEST CONGESTION SINCE Saturday Symptoms (Recalled from RN notes): Yes Resp Symptoms (Recalled from RN notes): No Skin Symptoms (Recalled from RN notes): No MS Symptoms (Recalled from RN notes): No Functional Status (Recalled from RN notes): WNL - History of Present Illness Provider Complaint: Patient states that she has been having sinus pain and pressure - Related Data Home Medications Medication Instructions Recorded
[2021-07-28 11:03] VITALS: BP 133/74; PULSE 102; RESP 22; TEMP 36.7; O2SAT 95
== END 2021-07-28 11:33 | disposition home or self-care (01) ==
PROVIDERS: Emergency Provider Nurse Practitioner; PCP Family Medicine
DX: J32.9 Chronic sinusitis, unspecified (principal)
CPT/HCPCS: 96372; 99212; G0463; J0696

== ENCOUNTER → 2021-12-29 16:14 | Outpatient (CLI) | payer BC, SELFPAY ==
--- NOTE | 2021-12-29 16:20 | MM_ITS ---
PROCEDURE INFORMATION: Exam: Bilateral Screening 3D Mammography Exam date and time: 12/29/2021 4:16 PM Age: 41 years old Clinical indication: Screening examination TECHNIQUE: Imaging protocol: Bilateral Screening tomosynthesis and 2D mammography including computer-aided detection (CAD) when performed. COMPARISON: No relevant prior studies available. FINDINGS: MAMMOGRAPHY: Breast composition: The breasts are heterogeneously dense, which may obscure small masses. Mass: None. Architectural distortion: None. Calcifications: No suspicious calcifications. Asymmetric density: None. Skin thickening: None. Axillary adenopathy: None. IMPRESSION: No mammographic evidence of malignancy. Annual screening is recommended unless otherwise clinically indicated. ASSESSMENT: BI-RADS Category 1: Negative
== END ==
PROVIDERS: PCP Family Medicine; Visit Provider Family Medicine
DX: Z12.31 Encounter for screening mammogram for malignant neoplasm of breast (principal)
CPT/HCPCS: 77063; 77067; G0399

== ENCOUNTER → 2022-01-15 10:25 | Outpatient (CLI) | payer BC, SELFPAY ==
[2022-01-15 10:46] LABS: MANUAL DIFFERENTIAL MANUAL DIFFERENTIAL (MANUAL DIFF)
[2022-01-15 10:54] LABS: Microscopic, Urine URINE MICROSCOPIC (MICROSCOPIC)
[2022-01-15 11:15] LABS: Appearance,Urine CLEAR (Clear); Bilirubin,Urine Negative (Negative); Blood, Urine TRACE-I (Negative); Color,Urine YELLOW (Yellow); Glucose,Urine (UA) Negative (Negative); Ketones,Urine Negative (Negative); Leukocyte Esterase,Urine Negative (Negative); Nitrate,Urine Negative (Negative); PH,Urine 6.5 (5.0-8.5); Protein,Urine Negative (Negative); Specific Gravity, Urine <= 1.005 (1.005-1.030); Urobilinogen,Urine 0.2 EU/dl (0.2)
[2022-01-15 11:20] LABS: Basophils # 0.2 K/mm3 (0-0.2); Basophils % 1.8 % (0.1-2.0); Eosinophils # 0.5 K/mm3 (0.0-0.4); Eosinophils % 5.3 % (0.1-12.0); Hematocrit 46.9 % (37.0-47.0); Hemoglobin 14.9 g/dL (12.2-16.2); Lymphocytes # 2.5 K/mm3 (0.7-4.5); Lymphocytes % 26.2 % (10-50); Mean Corpuscular HGB Conc 31.7 g/dL (31.8-35.4); Mean Corpuscular Hemoglobin 30.7 pg (27.0-31.2); Mean Corpuscular Volume 96.8 fl (81-99); Mean Platelet Volume 8.9 fl (7.4-10.4); Monocytes # 0.5 K/mm3 (0.1-1.0); Monocytes % 5.3 % (1.7-9.3); Neutrophils # 5.7 K/mm3 (1.8-7.8); Neutrophils % 61.4 % (37.0-80.0); Platelet Count 433 K/mm3 (142-424); Red Blood Count 4.84 M/mm3 (4.20-5.40); Red Cell Distribution Width 12.9 % (11.5-17.5); White Blood Count 9.4 K/mm3 (4.8-10.8)
[2022-01-15 11:32] LABS: Bacteria,Urine Trace /lpf; Squamous Epithelial Cell,Urine Occasional #/hpf (0-5)
[2022-01-15 11:39] LABS: Hemoglobin A1C 5.5 % (4.0-6.0)
[2022-01-15 12:08] LABS: Chloride 106 mmol/L (98-107)
[2022-01-15 12:09] LABS: Potassium 4.4 mmoL/L (3.5-5.1); Sodium 141 mmol/L (136-145)
[2022-01-15 12:11] LABS: Alanine Aminotransferase 42 U/L (12-78); Albumin Level 4.6 g/dl (3.5-5.0); Alkaline Phosphatase 73 U/L (38-126); Anion Gap 15.4 mEq/L (5-15); Aspartate Amino Transferase 33 U/L (14-36); Bilirubin,Total 0.9 mg/dl (0.2-1.3); Blood Urea Nitrogen 12 mg/dl (7-17); Carbon Dioxide 24 mmol/L (22.0-30.0); Cholesterol 266 mg/dl (140-200); Estimated Glomerular Filt Rate 92 ml/min (>60); GFR (African American) 111 ML/MIN (>60); Iron 191 ug/dL (37-170); Triglycerides 180 mg/dl (30-150); VLDL Cholesterol 36 mg/dL (0-40)
[2022-01-15 12:12] LABS: Albumin/Globulin Ratio 1.7 (1.1-1.8); Calcium 10.6 mg/dl (8.4-10.2); Chol/HDL Ratio 7.8 (1-3.5); Globulin 2.7 g/dL (1.3-3.2); Glucose 93 mg/dl (74-100); HDL Cholesterol 34 mg/dl (40-60); Total Protein,Serum 7.3 g/dl (6.3-8.2)
[2022-01-15 12:22] LABS: Total Iron Binding Capacity 353 ug/dL (265-497)
[2022-01-15 12:43] LABS: Thyroid Stimulating Hormone 1.18 uIU/mL (0.465-4.68)
[2022-01-15 13:02] LABS: Eosinophils % 3 % (0-3); Lymphocytes % 29 % (10-50); Monocytes % 5 % (2-9); Neutrophils % 63 % (42-76); Platelet Estimate Normal; RBC Morphology Normal; Total Cells Counted 100
[2022-01-16 08:47] LABS: FSH 15.2 mIU/mL (.); LH 13.5 mIU/mL (.)
== END ==
PROVIDERS: PCP Family Medicine; Visit Provider Family Medicine
DX: N92.6 Irregular menstruation, unspecified (principal); J30.9 Allergic rhinitis, unspecified; F41.9 Anxiety disorder, unspecified; R03.0 Elevated blood-pressure reading, without diagnosis of hypertension; Z72.0 Tobacco use; Z13.1 Encounter for screening for diabetes mellitus; Z79.899 Other long term (current) drug therapy
CPT/HCPCS: 36415; 80053; 80061; 81001; 83001; 83002; 83036; 83540; 83550; 84443; 85007; 85014; 85018; 85048; 85049; 87086

== ENCOUNTER → 2022-08-08 16:29 | Outpatient (CLI) | payer BC, SELFPAY ==
[2022-08-08 15:48] LABS: Basophils # 0.1 K/mm3 (0-0.2); Basophils % 0.6 % (0.1-2.0); Eosinophils # 0.5 K/mm3 (0.0-0.4); Eosinophils % 2.5 % (0.1-12.0); Hematocrit 47.5 % (37.0-47.0); Hemoglobin 15.4 g/dL (12.2-16.2); Lymphocytes # 4.5 K/mm3 (0.7-4.5); Lymphocytes % 21.7 % (10-50); Mean Corpuscular HGB Conc 32.3 g/dL (31.8-35.4); Mean Corpuscular Hemoglobin 30.7 pg (27.0-31.2); Mean Corpuscular Volume 95.1 fl (81-99); Mean Platelet Volume 8.5 fl (7.4-10.4); Monocytes # 1.6 K/mm3 (0.1-1.0); Monocytes % 7.5 % (1.7-9.3); Neutrophils # 14.1 K/mm3 (1.8-7.8); Neutrophils % 67.6 % (37.0-80.0); Platelet Count 366 K/mm3 (142-424); Red Cell Distribution Width 13.5 % (11.5-17.5); White Blood Count 20.8 K/mm3 (4.8-10.8)
[2022-08-08 15:54] LABS: MANUAL DIFFERENTIAL MANUAL DIFFERENTIAL (MANUAL DIFF)
[2022-08-08 18:36] LABS: Lymphocytes % 23 % (10-50); Monocytes % 7 % (2-9); Neutrophils % 70 % (42-76); Total Cells Counted 100
[2022-08-08 18:37] LABS: Platelet Estimate Normal; Stomatocytes 1+
== END ==
PROVIDERS: PCP Nurse Practitioner Family; Visit Provider Nurse Practitioner Family
DX: K62.5 Hemorrhage of anus and rectum (principal); K62.89 Other specified diseases of anus and rectum
CPT/HCPCS: 85007; 85025

== ENCOUNTER → 2022-11-06 10:57 | Outpatient (CLI) | payer BC, SELFPAY ==
[2022-11-06 11:01] LABS: Microscopic, Urine URINE MICROSCOPIC (MICROSCOPIC)
[2022-11-06 11:22] LABS: Appearance,Urine CLEAR (Clear); Bilirubin,Urine Negative (Negative); Blood, Urine 2+ (Negative); Color,Urine YELLOW (Yellow); Glucose,Urine (UA) Negative (Negative); Ketones,Urine Negative (Negative); Leukocyte Esterase,Urine Negative (Negative); Nitrate,Urine Negative (Negative); PH,Urine 8.5 (5.0-8.5); Protein,Urine Negative (Negative)
[2022-11-06 11:32] LABS: Basophils % 0.4 % (0.1-2.0); Eosinophils # 0.3 K/mm3 (0.0-0.4); Eosinophils % 3.6 % (0.1-12.0); Hemoglobin 14.4 g/dL (12.2-16.2); Lymphocytes # 2.7 K/mm3 (0.7-4.5); Lymphocytes % 28.7 % (10-50); Mean Corpuscular HGB Conc 33.6 g/dL (31.8-35.4); Mean Corpuscular Hemoglobin 32.8 pg (27.0-31.2); Mean Corpuscular Volume 97.7 fl (81-99); Mean Platelet Volume 9.2 fl (7.4-10.4); Monocytes # 0.7 K/mm3 (0.1-1.0); Monocytes % 7.2 % (1.7-9.3); Neutrophils # 5.7 K/mm3 (1.8-7.8); Neutrophils % 60.1 % (37.0-80.0); Platelet Count 316 K/mm3 (142-424); Red Blood Count 4.41 M/mm3 (4.20-5.40); Red Cell Distribution Width 13.6 % (11.5-17.5); White Blood Count 9.5 K/mm3 (4.8-10.8)
[2022-11-06 11:34] LABS: Bacteria,Urine Trace /lpf; Squamous Epithelial Cell,Urine Occasional #/hpf (0-5)
[2022-11-06 11:41] LABS: Alanine Aminotransferase 47 U/L (12-78); Albumin Level 4.2 g/dl (3.5-5.0); Albumin/Globulin Ratio 1.4 (1.1-1.8); Alkaline Phosphatase 72 U/L (38-126); Anion Gap 12.4 mEq/L (5-15); Aspartate Amino Transferase 34 U/L (14-36); Bilirubin,Total 0.7 mg/dl (0.2-1.3); Blood Urea Nitrogen 11 mg/dl (7-17); Calcium 9.7 mg/dl (8.4-10.2); Carbon Dioxide 23 mmol/L (22.0-30.0); Chloride 108 mmol/L (98-107); Chol/HDL Ratio 7.7 (1-3.5); Cholesterol 238 mg/dl (140-200); Estimated Glomerular Filt Rate 109 ml/min (>60); GFR (African American) 132 ML/MIN (>60); Glucose 88 mg/dl (74-100); HDL Cholesterol 31 mg/dl (40-60); Potassium 4.4 mmoL/L (3.5-5.1); Sodium 139 mmol/L (136-145); Total Protein,Serum 7.2 g/dl (6.3-8.2); Triglycerides 210 mg/dl (30-150); VLDL Cholesterol 42 mg/dL (0-40)
[2022-11-06 11:46] LABS: Hemoglobin A1C 5.5 % (4.0-6.0)
[2022-11-06 11:52] LABS: Direct LDL Cholesterol 157.28 mg/dL (100-129)
[2022-11-06 12:11] LABS: Thyroid Stimulating Hormone 0.94 uIU/mL (0.465-4.68)
[2022-11-06 12:31] LABS: Vitamin B12 440 pg/mL (239-931)
== END ==
LOC: LAB 10:57
PROVIDERS: PCP Nurse Practitioner Family; Visit Provider Obstetrics & Gynecology
DX: R09.89 Other specified symptoms and signs involving the circulatory and respiratory systems (principal); N92.6 Irregular menstruation, unspecified; R53.83 Other fatigue; E66.9 Obesity, unspecified; Z68.35 Body mass index [BMI] 35.0-35.9, adult; Z13.1 Encounter for screening for diabetes mellitus; Z13.220 Encounter for screening for lipoid disorders; Z79.899 Other long term (current) drug therapy
CPT/HCPCS: 36415; 80053; 80061; 81001; 82306; 82607; 83036; 84443; 85025; 87086

== ENCOUNTER 2022-12-04 06:33 | Emergency (ER) | payer BC, SELFPAY ==
[2022-12-04 06:35] VITALS: BP 144/72; PULSE 87; RESP 22; TEMP 36.9; O2SAT 96; BMI 32.3
--- NOTE | 2022-12-04 06:43 | XR_ITS ---
FINAL REPORT CLINICAL HISTORY: cp sob FINDINGS: SINGLE-VIEW CHEST The heart size is normal. The mediastinum is normal. The lungs are clear. There is no pneumothorax. IMPRESSION: No acute cardiopulmonary process. Reviewed, Interpreted and Dictated by Jin Aly III, MD Transcribed by Cassandra Brown Authenticated and [facility]
--- NOTE | 2022-12-04 06:45 | HMH.EDGENADL ---
Discharge Plan Disposition Patient Disposition: Home, Self-Care Prescriptions Prescriptions: New hydroxyzine pamoate [Vistaril] 25 mg capsule 25 mg PO Q6H PRN (Reason: anxiety) Qty: 30 0RF No Action calcium carbonate [Tums Extra Strength Smoothies] 300 mg (750 mg) tablet,chewable 300 mg PO DAILY PRN famotidine [Acid Office Clerk Routine (famotidine)] 20 mg tablet 20 mg PO DAILY PRN sertraline 50 mg tablet 50 mg PO QHS Qty: 90 1RF Flonase Sensimist 27.5 mcg/actuation spray,suspension 2 spray intranasal DAILY PRN Rx Instructions: into each nostril cetirizine [Zyrtec] 10 mg tablet 10 mg PO DAILY PRN norethindrone (contraceptive) 0.35 mg tablet 0.35 mg PO DAILY Qty: 28 3RF Referrals Follow up/Referrals: Provider,Referral, [Referring] - See instructions Activity Restrictions/Add. Instructions Additional Instructions/Restrictions: Call your family doctor to establish care for this visit to the emergency department and schedule follow-up within 48 hours to ensure improvement. If you have any worsening of your condition or any other concerning signs or symptoms, return to the emergency department or your primary care doctor for further evaluation. Vistaril every 6 hours as needed for anxiety. Clinical Impressions Clinical Impression: Chest tightness Discharge ED Provider: Bipin Chavarria General Adult HPI <Chencho Rosales MD - Last Filed: 12/04/22 06:52> General Chief complaint: Chest Pain Stated complaint: SOA, weak legs, poss anxiety Time Seen by Provider: 12/04/22 06:35 History of Present Illness HPI narrative: 42-year-old female reportedly previously healthy presents with chest tightness since . She reports that she was pulling weeds on when she noticed it. She reports that it comes and goes but does seem to be getting worse. She reports some chest wall tenderness. She is a smoker. Denies history of DVT or PE. Denies any cardiac or lung history. Denies fever or productive cough. Denies palpitations. Related Data Home Medications Medication Instructions Recorded Confirmed cetirizine 10 mg tablet (Zyrtec) 10 mg PO DAILY PRN 08/08/22 11/06/22 fluticasone furoate 27.5 2 spray intranasal DAILY PRN 08/08/22 11/06/22 mcg/actuation nasal spray,suspension (Flonase Sensimist) calcium carbonate 300 mg (750 mg) 300 mg PO DAILY PRN 08/20/22 11/06/22 chewable tablet (Tums Extra Strength Smoothies) famotidine 20 mg tablet (Acid 20 mg PO DAILY PRN 08/20/22 11/06/22 Office Clerk Routine (famotidine)) Previous Rx's Medication Instructions Recorded sertraline 50 mg tablet 50 mg PO QHS #90 tabs 08/20/22 norethindrone (contraceptive) 0.35 0.35 mg PO DAILY #28 tabs 11/06/22 mg tablet hydroxyzine pamoate 25 mg capsule 25 mg PO Q6H PRN anxiety #30 caps 12/04/22 (Vistaril) Allergies Allergy/AdvReac Type Severity Reaction Status Date / Time No Known Allergies Allergy Verified 11/06/22 10:04 [facility] <Chencho Rosales MD - Last Filed: 12/04/22 06:52> [facility] Disclaimer: The information contained in this section may have been updated after the patient was seen, as this information can be updated by other users. Medical History Abnormal uterine bleeding Allergic rhinitis Bleeding from anus Bronchitis Cervical lymphadenopathy COVID-19 virus test result unknown External hemorrhoid Fibroids Foot pain Hemorrhoids thrombosed Impacted cerumen of both ears Influenza B Mass of anus Migraines Otitis media Sinusitis Tick bite of scalp URI (upper respiratory infection) UTI (urinary tract infection) Vertigo Viral pharyngitis Surgical History History of cholecystectomy Family History Father Prediabetes Mother Heart attack Social History Smo
--- NOTE | 2022-12-04 06:46 | ECG_ITS ---
APPROVED REPORT Exam: Resting ECG HR:85 bpm ECG Measurements Heart Rate 85 AXES [place] 133 P 62 QRSd 90 QRS 50 QT 349 T 59 QTc 392 Conclusion SINUS RHYTHM NORMAL ECG UNCONFIRMED REPORT Electronically signed by : Ab Servin MD 12/05/2022 08:50:17
[2022-12-04 06:58] VITALS: PULSE 87
[2022-12-04 07:00] VITALS: BP 140/74; PULSE 88; RESP 14; O2SAT 96
[2022-12-04 07:00] LABS: Basophils # 0.1 K/mm3 (0-0.2); Basophils % 0.6 % (0.1-2.0); Eosinophils # 0.5 K/mm3 (0.0-0.4); Eosinophils % 4.6 % (0.1-12.0); Hematocrit 46.3 % (37.0-47.0); Hemoglobin 14.9 g/dL (12.2-16.2); Lymphocytes % 35.9 % (10-50); Mean Corpuscular HGB Conc 32.2 g/dL (31.8-35.4); Mean Corpuscular Hemoglobin 31.6 pg (27.0-31.2); Mean Platelet Volume 8.7 fl (7.4-10.4); Monocytes # 0.5 K/mm3 (0.1-1.0); Monocytes % 4.4 % (1.7-9.3); Neutrophils # 6.1 K/mm3 (1.8-7.8); Neutrophils % 54.7 % (37.0-80.0); Platelet Count 347 K/mm3 (142-424); Red Blood Count 4.72 M/mm3 (4.20-5.40); Red Cell Distribution Width 13.2 % (11.5-17.5); White Blood Count 11.1 K/mm3 (4.8-10.8)
[2022-12-04 07:02] LABS: Chloride 104 mmol/L (98-107); Sodium 136 mmol/L (136-145)
[2022-12-04 07:05] LABS: Alanine Aminotransferase 50 U/L (12-78); Albumin Level 4.2 g/dl (3.5-5.0); Albumin/Globulin Ratio 1.3 (1.1-1.8); Alkaline Phosphatase 66 U/L (38-126); Aspartate Amino Transferase 38 U/L (14-36); Blood Urea Nitrogen 10 mg/dl (7-17); Calcium 9.3 mg/dl (8.4-10.2); Carbon Dioxide 21 mmol/L (22.0-30.0); Creatinine Clearance Estimated 148 mL/min (50-200); Estimated Glomerular Filt Rate 91 ml/min (>60); GFR (African American) 111 ML/MIN (>60); Globulin 3.2 g/dL (1.3-3.2); Glucose 186 mg/dl (74-100); Total Protein,Serum 7.4 g/dl (6.3-8.2)
[2022-12-04 07:11] LABS: D-Dimer 0.68 ug/mL (0.0-0.5)
[2022-12-04 07:19] LABS: Troponin I < 0.01 ng/ml (0.00-0.034)
--- NOTE | 2022-12-04 08:20 | PC.NURSE ---
DR JENSEN AT BEDSIDE TO UPDATE PT
[2022-12-04 08:40] VITALS: BP 133/62; PULSE 82; RESP 18; TEMP 36.7; O2SAT 95
== END 2022-12-04 08:40 | disposition home or self-care (01) ==
PROVIDERS: Emergency Medicine; Emergency Provider Emergency Medicine; PCP Nurse Practitioner Family
DX: R07.89 Other chest pain (principal); R06.02 Shortness of breath; F17.210 Nicotine dependence, cigarettes, uncomplicated
CPT/HCPCS: 71045; 80053; 84484; 85025; 85378; 93005; 99285

== ENCOUNTER 2023-05-28 10:46 | Emergency (ER) | payer BC, SELFPAY ==
[2023-05-28 11:00] VITALS: BP 141/90; PULSE 89; RESP 18; TEMP 37; O2SAT 100; BMI 36.4
--- NOTE | 2023-05-28 11:08 | ED_ITS ---
Discharge Plan Disposition Patient Disposition: Home, Self-Care Condition: Good Prescriptions Prescriptions: New amoxicillin 875 mg tablet 875 mg PO Q12H Qty: 20 0RF fluticasone propionate [Flonase Allergy Relief] 50 mcg/actuation spray,suspension 2 spray intranasal DAILY Qty: 16 0RF Rx Instructions: administer into each nostril daily meclizine 25 mg tablet 25 mg PO TID PRN (Reason: dizziness) Qty: 12 0RF No Action Flonase Sensimist 27.5 mcg/actuation spray,suspension 2 spray intranasal DAILY PRN (Reason: allergies) Rx Instructions: into each nostril cetirizine [Zyrtec] 10 mg tablet 10 mg PO DAILY PRN (Reason: allergies) norethindrone (contraceptive) 0.35 mg tablet 0.35 mg PO DAILY Qty: 28 3RF sertraline 50 mg tablet See Rx Instructions .ROUTE .COMPLEX Qty: 90 1RF Dose Instruction: TAKE ONE TABLET BY MOUTH EVERY DAY AT BEDTIME Rx Instructions: TAKE ONE TABLET BY MOUTH EVERY DAY AT BEDTIME hydroxyzine pamoate [Vistaril] 25 mg capsule 25 mg PO Q6H PRN (Reason: anxiety) Qty: 30 0RF Referrals Follow up/Referrals: Annette Love APRN [Primary Care Provider] - See instructions Activity Restrictions/Add. Instructions Additional Instructions/Restrictions: Take medication as prescribed Follow up with your Family Doctor if no improvement or any worsening of symptoms Straight to ER if any life threatening symptoms Clinical Impressions Clinical Impression: Otitis media Instructions Patient Instructions: Middle Ear Infection, Vertigo Discharge ED Provider: Andressa Marquez [facility] General Stated complaint: ear pain Mode of Arrival: Ambulatory Source of Information: Patient Limitations: No Limitations Time Seen by Provider: 05/28/23 11:09 Description of Symptoms (Recalled from Triage Doc. by RN): Pt has left ear pain. HEENT Symptoms (Recalled from RN notes): Yes Resp Symptoms (Recalled from RN notes): No Skin Symptoms (Recalled from RN notes): No MS Symptoms (Recalled from RN notes): No Functional Status (Recalled from RN notes): n/a History of Present Illness Provider Complaint: Patient states that she has been having pain in her left ear and at times she gets dizzy and feels like the room starts spinning around her when she tries to raise up or makes a quick movement states this morning when she raised up out of bed she got dizzy again and took her minute for the room to stop spinning Related Data Home Medications Medication Instructions Recorded Confirmed cetirizine 10 mg tablet (Zyrtec) 10 mg PO DAILY PRN allergies 08/08/22 05/28/23 fluticasone furoate 27.5 2 spray intranasal DAILY PRN 08/08/22 05/28/23 mcg/actuation nasal allergies spray,suspension (Flonase Sensimist) Previous Rx's Medication Instructions Recorded norethindrone (contraceptive) 0.35 0.35 mg PO DAILY #28 tabs 11/06/22 mg tablet hydroxyzine pamoate 25 mg capsule 25 mg PO Q6H PRN anxiety #30 caps 12/04/22 (Vistaril) sertraline 50 mg tablet See Rx Instructions .Route 02/22/23 .COMPLEX #90 tabs amoxicillin 875 mg tablet 875 mg PO Q12H #20 tabs 05/28/23 fluticasone propionate 50 2 spray intranasal DAILY #16 grams 05/28/23 mcg/actuation nasal spray,suspension (Flonase Allergy Relief) meclizine 25 mg tablet 25 mg PO TID PRN dizziness #12 tabs 05/28/23 Allergies Allergy/AdvReac Type Severity Reaction Status Date / Time No Known Allergies Allergy Verified 05/28/23 11:06 Worker's Comp Is this a Worker's Comp case?: No [facility] Disclaimer: The information contained in this section may have been updated after the patient was seen, as this information can be updated by other users. Medical History Abnormal uterine bleeding Allergic rhinitis Bleeding from anus Bronchitis Cervical lymphadenopathy COVID-19 virus test result unknown External hemorrhoid Fibroids Foot pain Hemorrhoids thrombosed Impacted cerumen of both ears Influenza B Mass of anus Migraines Otitis media Perimenopausal vasomotor symptoms Sinusitis Tick bite of scalp URI (upper respiratory infection) UTI (urinary tract infection) Vertigo Viral pharyngitis Surgical History History of cholecystectomy Family History Father Prediabetes Mother Heart attack Social History Smoking Status: Current every day smoker tobacco type: cigarettes packs per day: 1 second hand exposure: Yes alcohol intake: never substance use type: denies use current occupational status: other Travel in the last 8 weeks: None housing: house ROS Obtained: Yes All systems reviewed & no additional complaints except as documented and Yes Systems reviewed as appropriate & no additional complaints except as documented Constitutional Constitutional: Reports system reviewed and no additional complaints, except as documented and Reports as per HPI ENT Ears, Nose, Mouth, and Throat: Reports system reviewed and no additional complaints, except as documented, Reports as per HPI, Reports dizziness and Reports otalgia Cardiovascular Cardiovascular: Reports system reviewed and no additional complaints, except as documented and Reports as per HPI Respiratory Respiratory: Reports system reviewed and no additional complaints, except as documented and Reports as per HPI Gastrointestinal Gastrointestingal: Reports system reviewed and no additional complaints, except as documented and as per HPI Genitourinary Female Genitourinary: Reports system reviewed and no additional complaints, except as documented and Reports as per HPI Neurologic Neurologic: Reports dizziness Physical Exam General General appearance: alert and in no apparent distress ENT ENT exam: Present mucous membranes moist Expanded ENT Exam TM/Canal exam: Bilateral TM: erythema (mild left worse in right) and bulging Respiratory Respiratory exam: Present normal lung sounds bilaterally; Absent respiratory distress or wheezes Cardiovascular Cardiovascular exam: Present regular rate, normal rhythm and normal heart sounds Neurological Exam Neurological exam: Present alert, oriented X3 and normal gait Medical Decision Making Hans Inquiry Pt receiving controlled substance: No Hans was queried for this patient: No Vital Signs: 05/28/23 11:00 Temperature 98.6 F Temperature Source Oral Pulse Rate [Right Radial] 89 Respiratory Rate 18 Blood Pressure [Right Arm] 141/90 H Blood Pressure Mean [Right Arm] 107 Blood Pressure Source [Right Arm] Automatic Cuff Blood Pressure Position [Right Arm] Sitting 02 Sat by Pulse Oximetry 100 Oxygen Delivery Method Room Air
[2023-05-28 11:34] VITALS: BP 141/90; PULSE 89; RESP 18; TEMP 37; O2SAT 100
== END 2023-05-28 11:34 | disposition home or self-care (01) ==
PROVIDERS: Emergency Provider Nurse Practitioner; PCP Nurse Practitioner Family
DX: H66.93 Otitis media, unspecified, bilateral (principal); R42 Dizziness and giddiness; F17.210 Nicotine dependence, cigarettes, uncomplicated
CPT/HCPCS: 99212; 99214; G0463

== ENCOUNTER 2023-08-26 11:45 | Emergency (ER) | payer BC, SELFPAY ==
[2023-08-26 12:40] VITALS: BP 143/86; PULSE 88; RESP 18; TEMP 36.8; O2SAT 96; BMI 33.6
[2023-08-26 12:41] LABS: Apearance,Urine Clear (Clear); Color,Urine Yellow (Yellow)
[2023-08-26 12:42] LABS: Bilirubin,Urine Negative (Negative); Blood, Urine Trace (Negative); Glucose,Urine (UA) Negative (Negative); Ketones,Urine Negative (Negative); PH,Urine 7.5 (5.0-8.5); Protein,Urine Negative (Negative); Specific Gravity, Urine 1.015 (1.005-1.030); UTC Leukocyte Esterase,Urine Negative (Negative); UTC Nitrate,Urine Negative (Negative); Urobilinogen,Urine 0.2 EU/dl (0.2)
--- NOTE | 2023-08-26 13:16 | EXP.UTC ---
Discharge Plan Disposition Patient Disposition: Home, Self-Care Condition: Good Prescriptions Prescriptions: No Action Flonase Sensimist 27.5 mcg/actuation spray,suspension 2 spray intranasal DAILY PRN (Reason: allergies) Rx Instructions: into each nostril cetirizine [Zyrtec] 10 mg tablet 10 mg PO DAILY PRN (Reason: allergies) norethindrone (contraceptive) 0.35 mg tablet 0.35 mg PO DAILY Qty: 28 3RF sertraline 50 mg tablet See Rx Instructions .ROUTE .COMPLEX Qty: 90 1RF Dose Instruction: TAKE ONE TABLET BY MOUTH EVERY DAY AT BEDTIME Rx Instructions: TAKE ONE TABLET BY MOUTH EVERY DAY AT BEDTIME hydroxyzine pamoate [Vistaril] 25 mg capsule 25 mg PO Q6H PRN (Reason: anxiety) Qty: 30 0RF fluticasone propionate [Flonase Allergy Relief] 50 mcg/actuation spray,suspension 2 spray intranasal DAILY Qty: 16 0RF Rx Instructions: administer into each nostril daily meclizine 25 mg tablet 25 mg PO TID PRN (Reason: dizziness) Qty: 12 0RF Referrals Follow up/Referrals: Loan Landaverde APRN [Primary Care Provider] - See instructions Activity Restrictions/Add. Instructions Additional Instructions/Restrictions: Follow up with PCP. Clinical Impressions Clinical Impression: Pelvic pressure in female Instructions Patient Instructions: Managing Symptoms of Menopause Discharge ED [place]eb[place] [facility] [place] General Stated complaint: uti Mode of Arrival: Ambulatory Source of Information: Patient Limitations: No Limitations Time Seen by Provider: 08/26/23 13:07 Description of Symptoms (Recalled from Triage Doc. by RN): Pt's symptoms are pelvic pressure, urinary urgency, and not emptying bladder. HEENT Symptoms (Recalled from RN notes): No Resp Symptoms (Recalled from RN notes): No Skin Symptoms (Recalled from RN notes): No MS Symptoms (Recalled from RN notes): No Functional Status (Recalled from RN notes): n/a History of Present Illness Provider Complaint: Pt reports that she has had some pelvic pain, urinary urgency, and feels as if she does not empty her bladder fully. She states that she is gong through Menopause and had a period last in June. She states that she thinks that she either has an UTI or is getting ready to have a period. Related Data Home Medications Medication Instructions Recorded Confirmed cetirizine 10 mg tablet (Zyrtec) 10 mg PO DAILY PRN allergies 08/08/22 08/26/23 fluticasone furoate 27.5 2 spray intranasal DAILY PRN 08/08/22 08/26/23 mcg/actuation nasal allergies spray,suspension (Flonase Sensimist) Previous Rx's Medication Instructions Recorded norethindrone (contraceptive) 0.35 0.35 mg PO DAILY #28 tabs 11/06/22 mg tablet hydroxyzine pamoate 25 mg capsule 25 mg PO Q6H PRN anxiety #30 caps 12/04/22 (Vistaril) sertraline 50 mg tablet See Rx Instructions .Route 02/22/23 .COMPLEX #90 tabs fluticasone propionate 50 2 spray intranasal DAILY #16 grams 05/28/23 mcg/actuation nasal spray,suspension (Flonase Allergy Relief) meclizine 25 mg tablet 25 mg PO TID PRN dizziness #12 tabs 05/28/23 Allergies Allergy/AdvReac Type Severity Reaction Status Date / Time No Known Allergies Allergy Verified 08/26/23 12:57 Worker's Comp Is this a Worker's Comp case?: No [facility] Disclaimer: The information contained in this section may have been updated after the patient was seen, as this information can be updated by other users. Medical History Abnormal uterine bleeding Allergic rhinitis Bleeding from anus Bronchitis Cervical lymphadenopathy COVID-19 virus test result unknown External hemorrhoid Fibroids Foot pain Hemorrhoids thrombosed Impacted cerumen of both ears Influenza B Mass of anus Migraines Otitis media Perimenopausal vasomotor symptoms Sinusitis Tick bite of scalp URI (upper respiratory infection) UTI (urinary tract infection) Vertigo Viral pharyngitis Surgical History History of cholecystectomy Family History Father Prediabetes Mother Heart attack Social History Smoking Status: Current every day smoker tobacco type: cigarettes packs per day: 1 second hand exposure: Yes alcohol intake: never substance use type: denies use current occupational status: other Travel in the last 8 weeks: None housing: house ROS Obtained: Yes All systems reviewed & no additional complaints except as documented Constitutional Constitutional: Reports system reviewed and no additional complaints, except as documented Eyes Eyes: Reports system reviewed and no additional complaints, except as documented ENT Ears, Nose, Mouth, and Throat: Reports system reviewed and no additional complaints, except as documented Cardiovascular Cardiovascular: Reports system reviewed and no additional complaints, except as documented Respiratory Respiratory: Reports system reviewed and no additional complaints, except as documented Gastrointestinal Gastrointestingal: Reports system reviewed and no additional complaints, except as documented Genitourinary Female Genitourinary: Reports system reviewed and no additional complaints, except as documented, Reports pelvic pain and Reports urinary urgency Musculoskeletal Musculoskeletal: Reports system reviewed and no additional complaints, except as documented Integumentary/Breasts Skin/Breast: Reports system reviewed and no additional complaints, except as documented Neurologic Neurologic: Reports system reviewed and no additional complaints, except as documented Endocrine Endocrine: Reports system reviewed and no additional complaints, except as documented Hematologic/Lymphatic Henatologic/Lymphatic: Reports system reviewed and no additional complaints, except as documented Allergic/Immunologic Allergic/Immunologic: Reports system reviewed and no additional complaints, except as documented Physical Exam General General appearance: alert and in no apparent distress Head Head exam: atraumatic and normocephalic Eye Eye exam: Present normal appearance ENT ENT exam: Present normal exam and normal oropharynx Neck Neck exam: Present normal inspection; Absent lymphadenopathy Chest Chest inspection: Present normal inspection and symmetric chest wall rise Respiratory Respiratory exam: Present normal lung sounds bilaterally Cardiovascular Cardiovascular exam: Present regular rate and normal heart sounds Abdominal Exam Abdominal exam: Present soft, tenderness and normal bowel sounds Abdominal tenderness: Present suprapubic Extremities Exam Extremities exam: Present normal inspection Back Exam Back exam: Present normal inspection; Absent CVA tenderness (R) or CVA tenderness (L) Neurological Exam Neurological exam: Present alert and oriented X3 Psychiatric Psychiatric exam: Present normal affect and normal mood Skin Skin exam: Present warm, dry and intact Lymphatic Lymphatic Findings: no adenopathy Medical Decision Making Hans Inquiry Pt receiving controlled substance: No Hans was queried for this patient: No Vital Signs: 08/26/23 12:40 Temperature 98.2 F Temperature Source Oral Pulse Rate [Right Radial] 88 Respiratory Rate 18 Blood Pressure [Right Arm] 143/86 H Blood Pressure Mean [Right Arm] 105 Blood Pressure Source [Right Arm] Automatic Cuff Blood Pressure Position [Right Arm] Sitting 02 Sat by Pulse Oximetry 96 Oxygen Delivery Method Room Air Lab Data Lab Results 08/26/23 12:41: Urine Color Yellow, Urine Appearance Clear, Urine pH 7.5, Ur Specific [place] 1.015, Urine Protein Negative, Urine Glucose (UA) Negative, Urine Ketones Negative, Urine Blood Trace, Urine Nitrate Negative, Urine Bilirubin Negative, Urine Urobilinogen 0.2, Ur Leukocyte Esterase Negative Orders (Tests/Meds): ORDERS Category Date Time Status Urine Culture Stat Micro 08/26/23 12:41 Ordered
[2023-08-26 13:39] VITALS: BP 143/86; PULSE 88; RESP 18; TEMP 36.8; O2SAT 96
== END 2023-08-26 13:39 | disposition home or self-care (01) ==
PROVIDERS: Emergency Provider Nurse Practitioner Family; PCP Nurse Practitioner Family
DX: R10.2 Pelvic and perineal pain (principal); R39.15 Urgency of urination
CPT/HCPCS: 81003; 99212; 99213; G0463

== ENCOUNTER 2023-08-30 10:57 | Outpatient (CLI) | payer BC, SELFPAY ==
--- NOTE | 2023-08-30 11:10 | US_ITS ---
PROCEDURE: US TRANSVAGINAL CLINICAL INDICATION: Pelvic Pain COMPARISON: US US TRANSVAGINAL from 07/06/2021 FINDINGS: Transvaginal sonographic images of the pelvis were obtained. UTERUS: 7.1cm x 5.4cmx 3.8 cm midline with a combined endometrial thickness of 11.5mm. On two of the views the endometrium measures up to 16 mm. LEFT OVARY: 1.6 cmx1.8 cmx1.4cm with a volume of 2ml. There are 3 follicles in the left ovary. The largest measures 1.8 cm. RIGHT OVARY: 1.2cmx 1.4cmx2.8 cm with a volume of 2.4ml. There are 2 follicles in the right ovary. The largest measures 1.8 cm. Both ovaries are seen and appear normal. Doppler flow to both ovaries are seen. There is no fluid in the cul-de-sac. IMPRESSION: 1. Midline uterus normal in shape and size. The endometrium is thickened measuring up to 16 mm. Likely premenstrual. 2. Both ovaries are seen and appear normal. There are follicles on each ovary. 3. No fluid in the cul-de-sac. Dictated by: Connor Juarez MD 08/31/2023 08:46 Connor Juarez MD in OV 08/31/2023 08:46
[2023-08-30 12:05] LABS: Basophils # 0.1 K/mm3 (0-0.2); Basophils % 0.7 % (0.1-2.0); Eosinophils # 0.3 K/mm3 (0.0-0.4); Eosinophils % 2.9 % (0.1-12.0); Hematocrit 44.5 % (37.0-47.0); Hemoglobin 14.7 g/dL (12.2-16.2); Lymphocytes # 2.7 K/mm3 (0.7-4.5); Mean Corpuscular HGB Conc 33.1 g/dL (31.8-35.4); Mean Corpuscular Hemoglobin 31.6 pg (27.0-31.2); Mean Corpuscular Volume 95.4 fl (81-99); Mean Platelet Volume 8.1 fl (7.4-10.4); Monocytes # 0.5 K/mm3 (0.1-1.0); Monocytes % 4.8 % (1.7-9.3); Neutrophils # 7.3 K/mm3 (1.8-7.8); Neutrophils % 66.7 % (37.0-80.0); Platelet Count 286 K/mm3 (142-424); Red Blood Count 4.66 M/mm3 (4.20-5.40); Red Cell Distribution Width 13.3 % (11.5-17.5)
[2023-08-30 13:19] LABS: Chloride 106 mmol/L (98-107); Potassium 4.7 mmoL/L (3.5-5.1); Sodium 137 mmol/L (136-145)
[2023-08-30 13:22] LABS: Alanine Aminotransferase 57 U/L (12-78); Albumin Level 4.3 g/dl (3.5-5.0); Albumin/Globulin Ratio 1.5 (1.1-1.8); Alkaline Phosphatase 76 U/L (38-126); Anion Gap 10.7 mEq/L (5-15); Aspartate Amino Transferase 39 U/L (14-36); Bilirubin,Total 0.6 mg/dl (0.2-1.3); Blood Urea Nitrogen 13 mg/dl (7-17); Calcium 10.2 mg/dl (8.4-10.2); Carbon Dioxide 25 mmol/L (22.0-30.0); Estimated Glomerular Filt Rate 109 ml/min (>60); GFR (African American) 131 ML/MIN (>60); Globulin 2.8 g/dL (1.3-3.2); Glucose 114 mg/dl (74-100); Total Protein,Serum 7.1 g/dl (6.3-8.2)
[2023-08-30 16:55] LABS: Thyroid Stimulating Hormone 1.21 uIU/mL (0.465-4.68)
[2023-08-31 08:17] LABS: FSH 8.8 mIU/mL (.)
== END 2023-08-30 23:59 | disposition home or self-care (01) ==
PROVIDERS: PCP Nurse Practitioner Family; Visit Provider Obstetrics & Gynecology
DX: R10.2 Pelvic and perineal pain (principal); N95.1 Menopausal and female climacteric states; R35.0 Frequency of micturition
CPT/HCPCS: 36415; 76830; 80050; 80053; 82670; 83001; 84443; 85025

== ENCOUNTER 2023-12-17 15:37 | Emergency (ER) | payer BC, SELFPAY ==
[2023-12-17 16:00] VITALS: BP 156/100; PULSE 93; RESP 17; TEMP 36.9; O2SAT 96; BMI 35.5
--- NOTE | 2023-12-17 16:10 | EXP.UTC ---
Discharge Plan Disposition Patient Disposition: Home, Self-Care Condition: Good Prescriptions Prescriptions: New azithromycin [Zithromax] 250 mg tablet 250 mg PO UD DOSE PK Qty: 6 0RF Rx Instructions: Take two (2) tablets today, then one (1) tablet days #2 thru #5 benzonatate 100 mg capsule 100 mg PO TIDP PRN (Reason: Cough) Qty: 30 0RF methylprednisolone 4 mg Tablets,Dose Pack 4 mg PO DIRECTED 6 Days Qty: 21 0RF Rx Instructions: Take 1 pack as directed for 6 days No Action sertraline 50 mg tablet See Rx Instructions .ROUTE .COMPLEX Qty: 90 1RF Dose Instruction: TAKE ONE TABLET BY MOUTH EVERY DAY AT BEDTIME Rx Instructions: TAKE ONE TABLET BY MOUTH EVERY DAY AT BEDTIME Referrals Follow up/Referrals: Annette Love APRN [Primary Care Provider] - See instructions Activity Restrictions/Add. Instructions Additional Instructions/Restrictions: Drink plenty of fluids. Take tylenol or ibuprofen for pain or fever. Take the medications as directed. Follow up with your regular doctor. GO TO THE ER FOR ANY WORSENING SYMPTOMS Don't start the oral steroids (medrol dose pack) until tomorrow since you had the shot here. Clinical Impressions Clinical Impression: Acute sinusitis Instructions Patient Instructions: Sinusitis, DI for Sinusitis, Ceftriaxone Injection, Dexamethasone Injection Print Language Print Language: Iranian Discharge ED Provider: Gustavo Montano [facility] General Stated complaint: ear ache, sore throat Mode of Arrival: Ambulatory Source of Information: Patient Limitations: No Limitations Time Seen by Provider: 12/17/23 16:10 Description of Symptoms (Recalled from Triage Doc. by RN): PATIENT C/O EAR PAIN AND SORE THROAT X 6 DAYS HEENT Symptoms (Recalled from RN notes): Yes Resp Symptoms (Recalled from RN notes): No Skin Symptoms (Recalled from RN notes): No MS Symptoms (Recalled from RN notes): No Functional Status (Recalled from RN notes): WNL History of Present Illness Provider Complaint: She states that for the past 3 days she has had worsening sinus congestion, ear pain, and sore throat. She denies any fever/chills/body aches. Related Data Previous Rx's ?Medication ?Instructions ?Recorded sertraline 50 mg tablet See Rx Instructions .Route 08/29/23 .COMPLEX #90 tabs azithromycin 250 mg tablet 250 mg PO UD DOSE PK #6 tabs 12/17/23 (Zithromax) benzonatate 100 mg capsule 100 mg PO TIDP PRN Cough #30 caps 12/17/23 methylprednisolone 4 mg tablets in 4 mg PO DIRECTED 6 days #21 tabs 12/17/23 a dose pack Allergies Allergy/AdvReac Type Severity Reaction Status Date / Time No Known Allergies Allergy Verified 09/09/23 09:37 Worker's Comp Is this a Worker's Comp case?: [facility] Dis[facility]: The information contained in this section may have been updated after the patient was seen, as this information can be updated by other users. Medical History (Updated 12/17/23 @ 16:40 by Gustavo Montano APRN) Perimenopausal symptoms Urinary frequency Pelvic pain in female Perimenopausal vasomotor symptoms Abnormal uterine bleeding Migraines Hemorrhoids External hemorrhoid Bleeding from anus Mass of anus Fibroids Tick bite of scalp Cervical lymphadenopathy Vertigo COVID-19 virus test result unknown Impacted cerumen of both ears Influenza B Otitis media Bronchitis Viral pharyngitis Allergic rhinitis Foot pain UTI (urinary tract infection) URI (upper respiratory infection) Sinusitis Surgical History History of cholecystectomy Family History Father Prediabetes Mother Heart attack Social History Smoking Status: Current every day smoker tobacco type: cigarettes packs per day: 1 second hand exposure: Yes alcohol intake: never substance use type: denies use current occupational status: other Travel in the last 8 weeks: None housing: house ROS Obtained: Yes All systems reviewed & no additional complaints except as documented Constitutional Constitutional: Reports poor appetite Eyes Eyes: Reports system reviewed and no additional complaints, except as documented ENT Ears, Nose, Mouth, and Throat: Reports as per HPI Cardiovascular Cardiovascular: Reports system reviewed and no additional complaints, except as documented and Denies chest pain Respiratory Respiratory: Denies shortness of breath, Reports chest congestion, Reports cough, Denies stridor and Denies wheezing Gastrointestinal Gastrointestingal: Reports system reviewed and no additional complaints, except as documented; Denies abdominal pain, diarrhea or vomiting Musculoskeletal Musculoskeletal: Reports system reviewed and no additional complaints, except as documented and Denies arthralgias Integumentary/Breasts Skin/Breast: Reports system reviewed and no additional complaints, except as documented and Denies rash Neurologic Neurologic: Denies paresthesias Allergic/Immunologic Allergic/Immunologic: Denies wheezing Physical Exam General General appearance: alert and in no apparent distress Eye Eye exam: Present normal appearance, PERRL and EOMI ENT ENT exam: Present mucous membranes moist and normal external ear exam Expanded ENT Exam External ear exam: Present normal external inspection TM/Canal exam: Bilateral TM: erythema and bulging Nose exam: Absent sinus tenderness Nasal speculum exam: Bilateral: normal Mouth exam: Present normal external inspection; Absent drooling Teeth exam: Present normal inspection Throat exam: Present tonsillar erythema and tonsillomegaly Neck Neck exam: Present normal inspection, full ROM and trachea midline; Absent tenderness, lymphadenopathy or thyromegaly Chest Chest inspection: Present normal inspection and symmetric chest wall rise; Absent tenderness or rash Respiratory Respiratory exam: Present normal lung sounds bilaterally; Absent respiratory distress, wheezes, stridor or accessory muscle use Cardiovascular Cardiovascular exam: Present regular rate, normal rhythm and normal heart sounds Abdominal Exam Abdominal exam: Present soft; Absent distention, tenderness, guarding, rebound or rigidity Extremities Exam Extremities exam: Present normal inspection, full ROM and normal capillary refill; Absent tenderness or calf tenderness Back Exam Back exam: Present normal inspection and full ROM; Absent tenderness Neurological Exam Neurological exam: Present alert and oriented X3 Psychiatric Psychiatric exam: Present normal affect and normal mood Skin Skin exam: Present warm, dry, intact and normal color Lymphatic Lymphatic Findings: no adenopathy Medical Decision Making Medical Records Medical records reviewed: No I reviewed the patient's medical records. Screening: Per USPSTF and CDC recommendations, given the prevalence of disease in our region, it is our hospital?s policy to screen for HIV and viral Hepatitis for all patients aged 18 and over and those with ongoing risk factors. Hans Inquiry Pt receiving controlled substance: No Vital Signs: 12/17/23 16:00 Temperature 98.4 F Temperature Source Oral Pulse Rate [Left Brachial] 93 H Respiratory Rate 17 Blood Pressure [Left Arm] 156/100 H Blood Pressure Mean [Left Arm] 118 Blood Pressure Source [Left Arm] Automatic Cuff Blood Pressure Position [Left Arm] Sitting 02 Sat by Pulse Oximetry 96 Oxygen Delivery Method Room Air
[2023-12-17 16:14] LABS: UTC Strep Screen (Rapid) Negative (Negative)
[2023-12-17] MEDS: cefTRIAXone 1GM VIAL 1 GM IM (16:30)
[2023-12-17] MEDS: LIDOCAINE 1% 5ML PF VIAL IM (16:30)
[2023-12-17] MEDS: DEXAMETHASONE 4MG/ML 1ML VIAL 8 MG IM (16:30)
[2023-12-17 16:42] VITALS: BP 156/100; PULSE 93; RESP 17; TEMP 36.9; O2SAT 96
== END 2023-12-17 16:46 | disposition home or self-care (01) ==
PROVIDERS: Emergency Provider Nurse Practitioner Family; PCP Nurse Practitioner Family
DX: J01.90 Acute sinusitis, unspecified (principal)
CPT/HCPCS: 87880; 96372; 99213; G0381; J0696; J1100

== ENCOUNTER 2024-07-14 09:32 | Outpatient (CLI) | payer BC, SELFPAY ==
--- NOTE | 2024-07-14 09:35 | XR_ITS ---
FINAL REPORT CLINICAL HISTORY: lt kne pain FINDINGS: LEFT KNEE 4 views of the left knee were obtained. There is no acute fracture or dislocation. There is mild medial compartment joint space narrowing. Lucency is seen at the lateral articular facet of the patella measuring 8 mm likely due to osteochondral lesion. Visualized joint spaces are normally aligned. Soft tissues are unremarkable. IMPRESSION: No acute bony abnormality. Reviewed, Interpreted and Dictated by Silviano Alvarez MD Transcribed by Concetta Jennings Authenticated and . [facility]
== END 2024-07-14 23:59 | disposition home or self-care (01) ==
LOC: RAD 09:33
PROVIDERS: PCP Nurse Practitioner Family; Visit Provider Physician Assistant Surgical
DX: M25.562 Pain in left knee (principal)
CPT/HCPCS: 73562

== ENCOUNTER 2024-07-23 13:48 | Outpatient (CLI) | payer BC, SELFPAY ==
[2024-07-23 14:05] LABS: Microscopic, Urine URINE MICROSCOPIC (MICROSCOPIC)
[2024-07-23 14:38] LABS: Appearance,Urine CLEAR (Clear); Bilirubin,Urine Negative (Negative); Blood, Urine TRACE-I (Negative); Color,Urine YELLOW (Yellow); Glucose,Urine (UA) Negative (Negative); Ketones,Urine Negative (Negative); Leukocyte Esterase,Urine 1+ (Negative); Nitrate,Urine Negative (Negative); Protein,Urine TRACE (Negative); Specific Gravity, Urine 1.025 (1.005-1.030); Urobilinogen,Urine 0.2 EU/dl (0.2)
[2024-07-23 14:53] LABS: Albumin Level 4.4 g/dl (3.5-5.0); Chloride 108 mmol/L (98-107); Potassium 4.3 mmoL/L (3.5-5.1); Sodium 139 mmol/L (136-145)
[2024-07-23 14:55] LABS: Blood Urea Nitrogen 15 mg/dl (7-17); Estimated Glomerular Filt Rate 78 ml/min (>60); GFR (African American) 94 ML/MIN (>60)
[2024-07-23 14:56] LABS: Alanine Aminotransferase 41 U/L (12-78); Albumin/Globulin Ratio 1.5 (1.1-1.8); Alkaline Phosphatase 89 U/L (38-126); Anion Gap 10.3 mEq/L (5-15); Aspartate Amino Transferase 28 U/L (14-36); Bilirubin,Total 0.6 mg/dl (0.2-1.3); Calcium 10.2 mg/dl (8.4-10.2); Carbon Dioxide 25 mmol/L (22.0-30.0); Chol/HDL Ratio 5.8 (1-3.5); Cholesterol 260 mg/dl (140-200); Globulin 2.9 g/dL (1.3-3.2); Glucose 109 mg/dl (74-100); HDL Cholesterol 45 mg/dl (40-60); Iron 120 ug/dL (37-170); Total Protein,Serum 7.3 g/dl (6.3-8.2); Triglycerides 279 mg/dl (30-150); VLDL Cholesterol 56 mg/dL (0-40)
[2024-07-23 15:01] LABS: Bacteria,Urine 1+ /lpf; Squamous Epithelial Cell,Urine Occasional #/hpf (0-5)
[2024-07-23 15:12] LABS: Free T4 (Free Thyroxine) 1.21 ng/dl (0.78-2.19)
[2024-07-23 15:14] LABS: 25-OH Vitamin D, Total 27.5 ng/mL (30-100)
[2024-07-23 15:16] LABS: Total Iron Binding Capacity 344 ug/dL (265-497)
[2024-07-23 15:17] LABS: Direct LDL Cholesterol 162.72 mg/dL (100-129)
[2024-07-23 15:27] LABS: Thyroid Stimulating Hormone 1.22 uIU/mL (0.465-4.68)
[2024-07-23 15:31] LABS: Ferritin 54.7 ng/ml (6.24-137); Hemoglobin A1C 5.9 % (4.0-6.0)
[2024-07-23 15:37] LABS: HIV Combo NEGATIVE (Negative)
[2024-07-23 16:20] LABS: Basophils # 0.1 K/mm3 (0-0.2); Basophils % 0.5 % (0.1-2.0); Eosinophils # 0.3 Kmm3 (0.0-0.4); Eosinophils % 1.7 % (0.1-12.0); Hematocrit 42.8 % (37.0-47.0); Hemoglobin 14.4 g/dL (12.2-16.2); Immature Granulocytes # 0.18 10^3uL; Immature Granulocytes % 1.2 %; Mean Corpuscular HGB Conc 33.6 g/dL (31.8-35.4); Mean Corpuscular Hemoglobin 30.7 pg (27.0-31.2); Mean Corpuscular Volume 91.3 fl (81-99); Mean Platelet Volume 10.1 fl (7.4-10.4); Monocytes # 1.1 K/mm3 (0.1-1.0); Monocytes % 7.2 % (1.7-9.3); Neutrophils # 9.7 K/mm3 (1.8-7.8); Neutrophils % 63.4 % (37.0-80.0); Nucleated Red Blood Cells # 0 10^3/uL; Nucleated Red Blood Cells % 0 %; Platelet Count 400 K/mm3 (142-424); Red Blood Count 4.69 M/mm3 (4.20-5.40); Red Cell Distribution Width 12.7 % (11.5-17.5); White Blood Count 15.4 K/mm3 (4.8-10.8)
[2024-07-23 16:26] LABS: Vitamin B12 680 pg/mL (239-931)
[2024-07-23 16:31] LABS: Hepatitis C Ab Qual. W/ RFX NEGATIVE (Negative)
[2024-07-23 17:27] LABS: MANUAL DIFFERENTIAL MANUAL DIFFERENTIAL (MANUAL DIFF)
[2024-07-23 17:39] LABS: Eosinophils % 2 % (0-3); Monocytes % 5 % (2-9); Myelocytes % 2 (0-1); Total Cells Counted 100
[2024-07-23 17:41] LABS: Atypical Lymphocytes % 2; Lymphocytes % 26 % (10-50)
[2024-07-23 17:46] LABS: Giant Platelets 1+; Platelet Estimate Normal
[2024-07-23 17:47] LABS: Poikilocytosis 1+; Target Cells 1+
[2024-07-23 17:48] LABS: Neutrophils % 62 % (42-76); Promyelocytes % 1 %
[2024-07-24 08:13] LABS: Estradiol 61.1 pg/mL (.); FSH 13.1 mIU/mL (.); LH 15.6 mIU/mL (.); Progesterone 0.2 ng/mL (.); Testosterone,Total 19 ng/dL (4-50); Thyroid Peroxidase Antibodies 42 IU/mL (0-34)
[2024-07-24 16:05] LABS: Cortisol,AM 7.1 ug/dL (6.2-19.4)
[2024-07-28 13:10] LABS: Estrogen 141 pg/mL (.)
== END 2024-07-23 23:59 | disposition home or self-care (01) ==
LOC: LAB 13:48
PROVIDERS: PCP Nurse Practitioner Family; Visit Provider Nurse Practitioner Family
DX: E78.5 Hyperlipidemia, unspecified (principal); N95.1 Menopausal and female climacteric states; E11.9 Type 2 diabetes mellitus without complications; I10 Essential (primary) hypertension; N92.6 Irregular menstruation, unspecified; F41.9 Anxiety disorder, unspecified; G47.33 Obstructive sleep apnea (adult) (pediatric); R41.3 Other amnesia; R53.83 Other fatigue; Z11.59 Encounter for screening for other viral diseases; Z72.0 Tobacco use; Z11.4 Encounter for screening for human immunodeficiency virus [HIV]
CPT/HCPCS: 36415; 80053; 80061; 81001; 82306; 82533; 82607; 82670; 82672; 82728; 83001; 83002; 83036; 83540; 83550; 84144; 84403; 84439; 84443; 85007; 85025; 85027; 86376; 86803; 87086; 87389

== ENCOUNTER 2024-08-31 14:22 | Outpatient (CLI) | payer BC, SELFPAY ==
[2024-08-31 15:47] LABS: Chol/HDL Ratio 5.4 (1-3.5); Cholesterol 233 mg/dl (140-200); HDL Cholesterol 43 mg/dl (40-60); Triglycerides 180 mg/dl (30-150); VLDL Cholesterol 36 mg/dL (0-40)
[2024-08-31 15:58] LABS: Direct LDL Cholesterol 144.55 mg/dL (100-129)
[2024-08-31 17:14] LABS: Basophils # 0.1 K/mm3 (0-0.2); Basophils % 0.5 % (0.1-2.0); Eosinophils # 0.3 Kmm3 (0.0-0.4); Eosinophils % 2.4 % (0.1-12.0); Hematocrit 42.1 % (37.0-47.0); Hemoglobin 14.1 g/dL (12.2-16.2); Immature Granulocytes # 0.04 10^3uL; Immature Granulocytes % 0.4 %; Lymphocytes # 3.2 K/mm3 (0.7-4.5); Lymphocytes % 29.7 % (10-50); Mean Corpuscular HGB Conc 33.5 g/dL (31.8-35.4); Mean Corpuscular Hemoglobin 30.7 pg (27.0-31.2); Mean Corpuscular Volume 91.7 fl (81-99); Mean Platelet Volume 11.1 fl (7.4-10.4); Monocytes # 0.9 K/mm3 (0.1-1.0); Monocytes % 8.7 % (1.7-9.3); Neutrophils # 6.3 K/mm3 (1.8-7.8); Neutrophils % 58.3 % (37.0-80.0); Nucleated Red Blood Cells # 0 10^3/uL; Nucleated Red Blood Cells % 0 %; Platelet Count 374 K/mm3 (142-424); Red Blood Count 4.59 M/mm3 (4.20-5.40); Red Cell Distribution Width 12.9 % (11.5-17.5); Red Cell Distribution Width-SD 42.6 fL; White Blood Count 10.9 K/mm3 (4.8-10.8)
== END 2024-08-31 23:59 | disposition home or self-care (01) ==
LOC: LAB.DROPOF 14:22
PROVIDERS: PCP Nurse Practitioner Family; Visit Provider Nurse Practitioner Family
DX: E78.5 Hyperlipidemia, unspecified (principal); D72.829 Elevated white blood cell count, unspecified
CPT/HCPCS: 80061; 82533; 85025

== ENCOUNTER 2024-11-11 22:16 | Emergency (ER) | payer BC, SELFPAY ==
[2024-11-11 22:21] VITALS: BP 175/97; RESP 18; TEMP 36.8; O2SAT 100; BMI 34.7
--- NOTE | 2024-11-11 22:59 | [facility].EDGENADL ---
Discharge Plan Disposition Patient Disposition: Home, Self-Care Prescriptions Prescriptions: No Action sertraline 50 mg tablet 25 mg PO DAILY Qty: 90 1RF albuterol sulfate 90 mcg/actuation HFA aerosol inhaler 2 puff inhalation Q4-6H PRN (Reason: shortness of breath or wheezing) Qty: 8.5 0RF sumatriptan succinate 100 mg tablet 100 mg PO ONCE PRN (Reason: headache) Qty: 14 0RF Referrals Follow up/Referrals: Annette Love APRN [Primary Care Provider, Family Practice] - See instructions Activity Restrictions/Add. Instructions Additional Instructions/Restrictions: Please follow-up with your primary care provider. Please return to the emergency department if you develop any new or worsening symptoms or become concerned for your health. Clinical Impressions Clinical Impression: Globus sensation Instructions Patient Instructions: DI for Skin Abscess Print Language Print Language: Divehi Discharge ED Provider: Chencho Rosales General Adult HPI General Chief complaint: Skin/Abscess/Foreign Body Stated complaint: something stuck in throat Time Seen by Provider: 11/11/24 22:59 Mode of Arrival: Ambulatory Source of Information: Patient Description of Symptoms (Recalled from ER Triage Doc. by RN): patient presents to ED with complaints of foreign body in throat. Patient was eating cheetos at approximately 2100 when one got lodged in her esophagus. Patient having a hard time swallowing her own spit. patient belching frequently. History of Present Illness HPI narrative: 44-year-old female without significant past medical history presents for concern for foreign body. She reports that she was eating crunchy Cheetos about 2 hours prior to arrival when she felt 1 get lodged in her throat. She reports no difficulty breathing but was having difficulty swallowing. She is now able to swallow liquids including drinking a soda and Gatorade and water. However, she still has a sensation of something being in her throat and she is belching frequently which is abnormal for her. Related Data Previous Rx's ?Medication ?Instructions ?Recorded sumatriptan succinate 100 mg tablet 100 mg PO ONCE PRN headache #14 02/10/24 tabs albuterol sulfate 90 mcg/actuation 2 puff inhalation Q4-6H PRN 07/15/24 aerosol inhaler shortness of breath or wheezing #8.5 grams sertraline 50 mg tablet 25 mg (1/2 x 50 mg) PO DAILY #90 08/31/24 tabs Allergies Allergy/AdvReac Type Severity Reaction Status Date / Time No Known Allergies Allergy Verified 08/31/24 08:20 [facility] Disclaimer: The information contained in this section may have been updated after the patient was seen, as this information can be updated by other users. Medical History (Updated 11/11/24 @ 23:16 by Chencho Rosales MD) Otitis media Acute sinusitis Encounter for hepatitis C screening test for low risk patient Screening for HIV (human immunodeficiency virus) Chest tightness Chest tightness URI (upper respiratory infection) Perimenopausal symptoms Urinary frequency Pelvic pain in female Perimenopausal vasomotor symptoms Abnormal uterine bleeding Migraines Hemorrhoids External hemorrhoid Bleeding from anus Mass of anus Fibroids Tick bite of scalp Cervical lymphadenopathy Vertigo COVID-19 virus test result unknown Impacted cerumen of both ears Influenza B Otitis media Bronchitis Viral pharyngitis Allergic rhinitis Foot pain UTI (urinary tract infection) URI (upper respiratory infection) Sinusitis Surgical History History of cholecystectomy Family History Father Prediabetes Mother Heart attack Social History (Updated 07/20/24 @ 16:05 by Elvira Vickers CMA) Smoking Status: Never smoker second hand exposure: Yes alcohol intake: never substance use type: denies use current occupational status: employed Travel in the last 8 weeks?: None housing: house Have you lived/traveled outside [place] in past 30 days?: No Contact w/someone who lives/traveled outside [place] past 30 days?: No Exposure to someone with infectious disease in past 14 days?: No Do you have a fever (greater than 100.4 F or 38 C)?: No Have you tested positive for COVID-19?: No Exposed to someone with COVID-19 in past 14 days?: No Do you have a sore throat?: No Do you have a cough?: No Do you have any weakness?: No Do you have any diarrhea?: No Are you experiencing any unusual bleeding?: No Do you have any muscle aches/pain?: No Do you have any abdominal pain?: No Are you experiencing loss of taste or smell?: No Other Medical History Have you received the Flu Vaccine for this season: No Have you received the Pneumonia Vaccine: No ROS Obtained: Yes All systems reviewed & no additional complaints except as documented Physical Exam General General appearance: alert and in no apparent distress Head Head exam: atraumatic and normocephalic Eye Eye exam: Present normal appearance, PERRL and EOMI ENT ENT exam: Present normal oropharynx and normal external ear exam Neck Neck exam: Present normal inspection and full ROM Chest Chest inspection: Present normal inspection and symmetric chest wall rise; Absent tenderness Respiratory Respiratory exam: Present normal lung sounds bilaterally; Absent respiratory distress Cardiovascular Cardiovascular exam: Present regular rate and normal rhythm Abdominal Exam Abdominal exam: Present soft; Absent distention, tenderness or guarding Extremities Exam Extremities exam: Present normal inspection; Absent edema or joint swelling Back Exam Back exam: Present normal inspection; Absent tenderness Neurological Exam Neurological exam: Present alert and oriented X3; Absent motor sensory deficit Psychiatric Psychiatric exam: Present normal affect and normal mood Skin Skin exam: Present warm, dry and normal color Lymphatic Lymphatic Findings: no adenopathy Medical Decision Making Medical Records Medical records reviewed: Yes I reviewed the patient's medical records. Screening: Per USPSTF and CDC recommendations, given the prevalence of disease in our region, it is our hospital?s policy to screen for HIV and viral Hepatitis for all patients aged 18 and over and those with ongoing risk factors. Hans Inquiry Pt receiving controlled substance: No Hans was queried for this patient: No Vital Signs: 11/11/24 22:21 11/11/24 23:16 Temperature 98.2 F Temperature Source Temporal Artery Scan Pulse Rate 94 H Respiratory Rate 18 16 Blood Pressure 151/88 H Blood Pressure [Right Arm] 175/97 H Blood Pressure Mean [Right Arm] 123 Blood Pressure Source [Right Arm] Automatic Cuff Blood Pressure Position [Right Arm] Sitting 02 Sat by Pulse Oximetry 100 97 Oxygen Delivery Method Room Air Lab Data Lab results reviewed: Yes I reviewed the patient's lab results. Orders (Tests/Meds): ED MEDICATIONS Discontinued Medications Generic Name Dose Route Start Last Admin Trade Name Freq PRN Reason Stop Dose Admin Belladonna Alkaloids 60 ml 11/11/24 23:08 11/11/24 23:16 Belladonna Alkaloids 60 Ml Ml PO 11/11/24 23:09 60 ml ONCE ONE Administration Medical Decision Narrative: 44-year-old female without significant past medical history presents for concern for possible food bolus.. History was obtained via interactive discussion with patient, family. On arrival, patient is [afebrile, hemodynamically stable, satting appropriately, alert, oriented x4, GCS 15], moving all extremities spontaneously. Full physical exam performed and significant for clear lungs bilaterally, patient able to swallow a bottle of water. Differential includes but is not limited to esophageal foreign body, airway foreign body, globus sensation. Given patient is able to swallow without difficulty and is belching air, I am not concerned that she has an esophageal obstruction at this time. No indication of more serious esophageal injury either. I believe that the sensation she is having is a globus sensation from irritation from when the Cheeto was briefly lodged. Patient was given a GI cocktail with some symptomatic improvement. She was discharged in stable condition. Procedures Risk/Benefits of Procedure(s) Were Explained: Yes Critical Care Critical Care Time Critical Care Time: No
[2024-11-11 23:16] VITALS: BP 151/88; PULSE 94; RESP 16; O2SAT 97
[2024-11-11] MEDS: BELLADONNA ALKALOIDS 60 ML ML PO (23:16)
[2024-11-11 23:35] VITALS: BP 141/73; PULSE 89; RESP 16; TEMP 36.6; O2SAT 98
== END 2024-11-11 23:39 | disposition home or self-care (01) ==
PROVIDERS: Emergency Provider Emergency Medicine; PCP Nurse Practitioner Family
DX: R09.A2 Foreign body sensation, throat (principal)
CPT/HCPCS: 99283

== ENCOUNTER 2024-12-28 12:17 | Outpatient (CLI) | payer BC, SELFPAY ==
[2024-12-28 16:38] LABS: Coronavirus 19, PCR Not Detected (NotDetected); Influenza A, PCR Not Detected (NotDetected); Influenza B, PCR Not Detected (NotDetected)
== END 2024-12-28 23:59 | disposition home or self-care (01) ==
LOC: LAB.DROPOF 12-29 10:19
PROVIDERS: PCP Student in an Organized Health Care Education/Training Program; Visit Provider Student in an Organized Health Care Education/Training Program
DX: J06.9 Acute upper respiratory infection, unspecified (principal); R05.1 Acute cough
CPT/HCPCS: 87631